=== PATIENT | female | born 1960 | race Caucasian/White ===

== ENCOUNTER 2016-11-29 21:46 | Emergency (ER) | payer MEDICAID ==
[2016-11-29] MEDS ORDERED: NAPROXEN 250 MG TABLET PO ONE (22:31)
[2016-11-29] MEDS ORDERED: LIDOCAINE 5% (700 MG) TRANSDERMAL ADH..PATCH TP ONE (22:31)
--- NOTE | 2016-11-29 22:33 | ER Document Report ---
ED General - General Chief Complaint: Back Pain Stated Complaint: BACK AND LEG PAIN Time Seen by Provider: 11/29/16 22:29 Notes: Patient is a 56-year-old female, morbid obesity with a weight of 125 kg who presents with chronic low back pain now with associated left-sided sciatica. Patient notes that she has had chronic pain in the low back for several years but has gotten progressively worse despite going to chronic pain management having localized injections to the area. She states over the last 24-40 hours she has had increasing sharp, stabbing, constant pain to the left low back now with a radiating, shooting, burning pain down her left leg. States the pain is increased by movement. She has tried lidocaine and heat without improvement of the pain. She has not seen a primary care doctor regarding today's concerns. She denies any acute injury. Denies any bowel or bladder incontinence, difficulty with ambulation, urinary retention, weakness or numbness. TRAVEL OUTSIDE OF THE [place] IN LAST 30 DAYS: No - Related Data Allergies/Adverse Reactions: No Known Drug Allergies Allergy (Verified 02/04/16 18:19) Past Medical History - General Information source: Patient - Social History Smoking Status: Current Every Day Smoker Chew tobacco use (# tins/day): No Frequency of alcohol use: None Drug Abuse: None Lives with: Family Family History: Arthritis, CAD, CVA, DM, Hyperlipidemia, Hypertension, Malignancy Patient has suicidal ideation: No Patient has homicidal ideation: No - Past Medical History Cardiac Medical History: Reports: Hx Hypercholesterolemia, Hx Hypertension Pulmonary Medical History: Reports: Hx COPD, Hx Pneumonia Endocrine Medical History: Reports: Hx Diabetes Mellitus Type 2 Renal/ Medical History: Denies: Hx Peritoneal Dialysis Musculoskeltal Medical History: Reports Hx Arthritis, Reports Hx Musculoskeletal Deformity, Reports Hx Musculoskeletal Trauma Skin Medical History: Denies Hx Cellulitis Psychiatric Medical History: Reports: Hx Depression Past Surgical History: Reports: Hx Gynecologic Surgery - ablation, Hx Hysterectomy - Immunizations Immunizations up to date: Yes Hx Diphtheria, Pertussis, Tetanus Vaccination: Yes Review of Systems - Review of Systems Notes: Constitutional: Negative for fever. HENT: Negative for sore throat. Eyes: Negative for visual changes. Cardiovascular: Negative for chest pain. Respiratory: Negative for shortness of breath. Gastrointestinal: Negative for abdominal pain, vomiting or diarrhea. Genitourinary: Negative for dysuria. Musculoskeletal: Positive for back pain. Skin: Negative for rash. Neurological: Negative for headaches, weakness or numbness. 10 point ROS negative except as marked above and in HPI. Physical Exam - Vital signs Vitals: Temp Pulse Resp BP Pulse Ox 98.2 F 86 20 150/82 H 96 11/29/16 21:52 11/29/16 21:52 11/29/16 21:52 11/29/16 21:52 11/29/16 21:52 Interpretation: Hypertensive Notes: PHYSICAL EXAMINATION: GENERAL: Well-appearing, well-nourished and in no acute distress. HEAD: Atraumatic, normocephalic. EYES: sclera anicteric, conjunctiva are normal. ENT: Moist mucous membranes. NECK: Normal range of motion LUNGS: Normal work of breathing HEART: 2+ radial pulses bilaterally, 2+ DP pulses bilaterally EXTREMITIES: no pitting or edema. No cyanosis. Back: No midline step-offs, deformities or point tenderness NEUROLOGICAL: 5 out of 5 strength both distally and proximally bilateral lower extremities. 2+ patellar reflexes bilaterally. No clonus. Sensation grossly intact in the bilateral lower extremities. Patient is able to ambulate without difficulty. PSYCH: Normal mood, normal affect. SKIN: Warm, Dry, normal turgor, no rashes or lesions noted. Course - Re-evaluation Re-evalutation: 11/29/16 22:31 Presentation of a well appearing patient complaining of acute on chronic back pain. No rapid progression of symptoms, systemic symptoms including fevers, chills, weight loss, history of recent bacterial infection, bilateral symptoms, numbness, weakness, difficulty walking, urinary retention or bowel incontinence , personal history of cancer, immunosuppression, diabetes, known AAA, or history of IV drug use. Exam is without point tenderness over vertebral bodies , pulsatile abdominal mass, and patient has symmetric and intact lower extremity strength, sensation, and reflexes without clonus. 2+ symmetric medial malleolar and dorsalis pedis pulses Based on history and physical, I have a very low suspicion of a concerning etiology of pain including epidural compression syndrome, spinal infection, transverse myelitis, malignancy, abdominal aortic aneurysm, renal colic, acute lower extremity claudication, neurogenic claudication, ankylosing spondylitis, or other intra-abdominal process. Due to absence of concerning risk factors in history and physical as well as absence of rapidly progressive, severe, or bilateral symptoms, will defer imaging at this point. Plan to manage conservatively with outpatient analgesia, analgesia, and physical therapy. - Acetaminophen 650 q 4 + ibuprofen 600 q 6 - Continue normal daily activities as tolerated by pain - Provide with standard musculoskeletal back pain exercise instructions - Instruct to follow up with primary care provider if symptoms not improving - Provide careful return precautions and concerning symptoms to watch for. - Vital Signs Vital signs: Temp Pulse Resp BP Pulse Ox 98.2 F 85 19 142/76 H 96 11/29/16 21:52 11/29/16 22:56 11/29/16 22:56 11/29/16 22:56 11/29/16 22:56 Discharge - Discharge Clinical Impression: Chronic back pain Qualifiers: Back pain location: low back pain Back pain laterality: midline Sciatica presence: with sciatica Sciatica laterality: sciatica laterality unspecified Qualified Code(s): M54.40 - Lumbago with sciatica, unspecified side Condition: Good Disposition: HOME, SELF-CARE Additional Instructions: You have been seen in the Emergency Department (ED) today for back pain. Your workup and exam have not shown any acute abnormalities and you are likely suffering from muscle strain or possible problems with your discs, but there is no treatment that will fix your symptoms at this time. Please take the naproxen that has been prescribed as directed. You should also purchase a local lidocaine cream such as "aspercreme with lidocaine" and use per bottle instructions to the affected area. Apply heat to the area as often as you are able. Continue to keep active and avoid prolonged periods of bed rest. Please follow up with your doctor as soon as possible regarding today's ED visit and your back pain. Return to the ED for worsening back pain, fever, weakness or numbness of either leg, or if you develop either (1) an inability to urinate or have bowel movements, or (2) loss of your ability to control your bathroom functions (if you start having "accidents"), or if you develop other new symptoms that concern you.concern you. Prescriptions: Naproxen 500 mg PO BID #60 tablet Referrals: KYLAH PRAKASH MD [Primary Care Provider] - Follow up as needed
[2016-11-29 22:57] VITALS: BP 142/76
== END 2016-11-29 22:56 | disposition home or self-care (01) ==
LOC: ER 21:46
DX: M54.40 Lumbago with sciatica, unspecified side (principal); M54.9 Dorsalgia, unspecified; G89.29 Other chronic pain; M54.5 Low back pain; E66.01 Morbid (severe) obesity due to excess calories; F17.200 Nicotine dependence, unspecified, uncomplicated
CPT/HCPCS: 99283; J3490 ×2

== ENCOUNTER 2016-12-01 07:11 | Inpatient (IN) | payer MEDICAID ==
--- NOTE | 2016-12-01 07:58 | ER Document Report ---
ED Neuro Symptoms/Deficit - General Chief Complaint: S/S of Possible Stroke Stated Complaint: WEAKNESS Time Seen by Provider: 12/01/16 07:21 Mode of Arrival: Ambulatory Information source: Patient Notes: Patient is a 56-year-old female who presents to the ER today for right-sided weakness, slurred speech that began last night at 5 PM. Patient lives with her son, her son states that she does not normally have slurred speech and right- sided weakness. She states that she did try to sleep through the night to see if it go away. She does have a history of hypertension, hyperlipidemia, diabetes, has never had any heart attack or stroke that she knows of. TRAVEL OUTSIDE OF THE [place] IN LAST 30 DAYS: No - Related Data Allergies/Adverse Reactions: No Known Drug Allergies Allergy (Verified 12/01/16 07:56) Home Medications: Current Home Medications Amlodipine Besylate [Norvasc 10 mg Tablet] 10 mg PO DAILY 12/01/16 [History] Canagliflozin [Invokana] 300 mg PO DAILY 12/01/16 [History] Clonidine HCl [Catapres 0.1 mg Tablet] 0.1 mg PO Q12 12/01/16 [History] Cyclobenzaprine HCl [Flexeril 10 mg Tablet] 10 mg PO BIDP PRN 12/01/16 [History] Exenatide Microspheres [Bydureon Pen] 2 mg SQ Q7D 12/01/16 [History] Insulin Aspart [Novolog Flexpen] 0 unit SQ ASDIR PRN 12/01/16 [History] Insulin Glargine,Hum.rec.anlog [Lantus Solostar] 50 unit SQ Q12 12/01/16 [ History] Nystatin [Mycostatin Cream] 1 applic TP BIDP PRN 12/01/16 [History] Pregabalin [Lyrica 100 Mg Capsule] 100 mg PO Q8 12/01/16 [History] Sulindac [Clinoril] 200 mg PO Q12HP PRN 12/01/16 [History] Triamcinolone Acetonide [Aristocort 0.1% Cream 15 gm] 1 applic TP BIDP PRN 12/01 [History] Past Medical History - General Information source: Patient - Social History Smoking Status: Former Smoker Family History: Arthritis, CAD, CVA, DM, Hyperlipidemia, Hypertension, Malignancy - Past Medical History Cardiac Medical History: Reports: Hx Hypercholesterolemia, Hx Hypertension Pulmonary Medical History: Reports: Hx COPD, Hx Pneumonia Endocrine Medical History: Reports: Hx Diabetes Mellitus Type 2 Renal/ Medical History: Denies: Hx Peritoneal Dialysis Musculoskeltal Medical History: Reports Hx Arthritis, Reports Hx Musculoskeletal Deformity, Reports Hx Musculoskeletal Trauma Skin Medical History: Denies Hx Cellulitis Psychiatric Medical History: Reports: Hx Depression Past Surgical History: Reports: Hx Gynecologic Surgery - ablation, Hx Hysterectomy - Immunizations Immunizations up to date: Yes Hx Diphtheria, Pertussis, Tetanus Vaccination: Yes Review of Systems - Review of Systems Constitutional: No symptoms reported EENT: No symptoms reported Cardiovascular: No symptoms reported Respiratory: No symptoms reported Gastrointestinal: No symptoms reported Genitourinary: No symptoms reported Female Genitourinary: No symptoms reported Musculoskeletal: No symptoms reported Skin: No symptoms reported Hematologic/Lymphatic: No symptoms reported Neurological/Psychological: See HPI Physical Exam - Vital signs Vitals: Pulse Resp BP Pulse Ox 69 14 140/89 H 93 12/01/16 07:19 12/01/16 07:19 12/01/16 07:19 12/01/16 07:19 - Notes Notes: PHYSICAL EXAMINATION: GENERAL: chronically ill appearing, but in no acute distress. HEAD: Atraumatic, normocephalic. EYES: Pupils equal round and reactive to light, extraocular movements intact, sclera anicteric, conjunctiva are normal. ENT: ear canals without erythema or foreign body, TMs pearly li with good bony landmarks, nares patent, oropharynx clear without exudates. Moist mucous membranes. airway patent NECK: Normal range of motion, supple without lymphadenopathy LUNGS: CTAB and equal. No wheezes rales or rhonchi. HEART: Regular rate and rhythm without murmurs ABDOMEN: Soft, no tenderness. No guarding, no rebound BACK: no vertebral tenderness, normal ROM GI/: no CVA tenderness EXTREMITIES: Normal range of motion, no pitting edema. No cyanosis. NEUROLOGICAL: right sided weakness to right leg and right arm, slurred speech, Cranial nerves grossly intact. Normal sensory exams. PSYCH: Normal mood, normal affect. SKIN: Warm, Dry, normal turgor, no rashes or lesions noted Course - Re-evaluation Re-evalutation: 12/01/16 09:21 pt's NIH score performed by me is 2 points, she is not a candidate for TPA as the symptoms began at 5pm last night, more than 12 hours ago. 12/01/16 09:29 Dr. Castorena agrees to admit pt for stroke like symtpoms with normal CT head and workup today but with right sided weakness and slurred speech. 12/02/16 10:00 - Vital Signs Vital signs: Temp Pulse Resp BP Pulse Ox 69 14 140/89 H 96 12/01/16 07:19 12/01/16 07:19 12/01/16 07:19 12/01/16 07:36 - Laboratory Result Diagrams: 12/02/16 04:29 12/02/16 04:29 ED NIH Stroke Scale - NIH Stroke Scale *: 1. NIH scale should be completed with appropriate accompanying assessment tools. *: 2. The NIH should reflect what the patient is capable of doing and should not be coached by the clinician. 1a. Level of Consciousness: 0=Alert;keenly responsive -: 1=Drowsy -: 2=Obtunded -: 3=Coma/unresponsive or reflex to noxious stimuli. 1a. Responses: 0 1b. Orientation Questions: a. What month is it? -: b. How old are you? -: 0=Answers both questions correctly. -: 1=Answers one question correctly or patient is intubated or has orotracheal trauma. -: 2=Answers neither question correctly. 1b. Responses: 0 1c. Response to commands: a. Open and close eyes? -: b. [employer] Supervisor and release hand? -: Credit is given despite weakness. Demonstration of task is permitted. Substitute command if hands cannot be used. -: 0=Performs both tasks correctly -: 1=Performs one task correctly -: 2=Performs neither task correctly 1c. Responses: 0 2. Gaze: Establish eye contact and instruct patient to "Follow my finger" -: 0=Normal -: 1=Partial gaze palsy. Gaze is abnormal in one or both eyes, but where forced deviation or total gaze paresis is not present. -: 2=Forced deviation or total gaze paresis. 2. Responses: 0 3. Visual Nagy: Sees fingers in all four quadrants. -: 0=No visual loss. -: 1=Partial hemianopsia. -: 2=Complete hemianopsia. -: 3=Bilateral hemianopsia (including Cortical blindness) 3. Responses: 0 4. Facial Movement: Instruct patient to: -: a. Show me your teeth -: b. Raise your eyebrows -: c. Close your eyes -: d. Smile -: 0=Normal symmetrical movement -: 1=Minor paralysis (flattened nasolabial fold, asymmetry on smiling). -: 2=Partial paralysis (total or near total paralysis of lower face). -: 3=Complete paralysis of upper and lower face 4. Responses: 0 5. Motor functions (left arm): Alternate sides and extend each arm with palms down (90 degrees if sitting or 45 degrees for supine). -: 0=No drift;limb holds for full 10 seconds. -: 1=Drift; limb holds but drifts down before full 10 seconds, but does not hit bed. -: 2=Some effort against gravity; limb cannot get to or maintain position. -: 3=No effort against gravity; limb falls. -: 4=No movement. -: UN=Amputation, joint fusion, explain in comments. 5. Responses (left arm): 0 5. Motor Functions (right arm): Alternate sides and extend each arm with palms down (90 degrees if sitting or 45 degrees for supine). -: 0=No drift;limb holds for full 10 seconds. -: 1=Drift; limb holds but drifts down before full 10 seconds, but does not hit bed. -: 2=Some effort against gravity; limb cannot get to or maintain position. -: 3=No effort against gravity; limb falls. -: 4=No movement. -: UN=Amputation, joint fusion, explain in comments. 5. Responses (right arm): 0 6. Motor Functions (left leg): With patient lying supine, alternate sides and extend each leg (30 degrees always while supine). -: 0=No drift, leg holds position for full 5 seconds -: 1=Drift; leg falls before full 5 seconds but does not hit bed. -: 2=Some effort against gravity, leg falls to bed but some effort against gravity. -: 3=No effort against gravity, leg falls to bed immediately. -: 4=No movement. -: UN=Amputation, joint fusion; explain in comments. 6. Responses (left leg): 0 6. Motor Functions (right leg): With patient lying supine, alternate sides and extend each leg (30 degrees always while supine). -: 0=No drift, leg holds position for full 5 seconds -: 1=Drift; leg falls before full 5 seconds but does not hit bed. -: 2=Some effort against gravity, leg falls to bed but some effort against gravity. -: 3=No effort against gravity, leg falls to bed immediately. -: 4=No movement. -: UN=Amputation, joint fusion; explain in comments. 6. Responses (right leg): 1 7. Limb Ataxia: With eyes open instruct patient to: -: a. "Touch your finger to your nose". -: b. "Touch your heel to your martinez" -: 0=Absent -: 1=Present in one limb. -: 2=Present in two limbs. -: UN=Amputation or joint fusion; explain in comments. 7. Responses: 0 8. Sensory: Test sensation using pinprick or noxious stimuli. Test as many body parts as possible. -: 0=Normal;no sensory loss -: 1=Mile to moderate sensory loss (patient feels pin prick but is less sharp on affected side). -: 2=Severe or total sensory loss. 8. Responses: 0 9. Best Language: Instruct patient to: -: a. "Describe what you see in this picture." -: b. "Name the items in this picture." -: c. "Read these sentences." -: 0=No aphasia, normal -: 1=Mild to moderate aphasia. -: 2=Severe aphasia -: 3=Mute, global aphasia, no usable speech or auditory comprehension. 9. Responses: 0 10. Articulation, Dysarthia: Instruct patient to: -: "Read these words" or "Repeat these words" -: 0=Normal -: 1=Mild to moderate; patient may slur some words but can be understood without difficulty. -: 2=Severe; patients speech so slurred as to be unintelligible in the absence of dysphasia. -: UN=Intubated or other physical barrier, explain in comments. 10. Responses: 1 11. Extinction or inattention: 0=No abnormality -: 1= Visual, tactile, auditory, spatial, or personal inattention or extinction to bilateral simulation in one or the sensory modalities. -: 2=Profound maged-inattention or maged-inattention to more than one modality; does not recognize own hand. 11. Responses: 0 Total Score: 2 Discharge - Discharge Clinical Impression: Stroke-like symptoms Condition: Stable Disposition: ADMITTED INPATIENT Admitting Provider: Hospitalist Unit Admitted: [facility]
--- NOTE | 2016-12-01 08:11 | RADIOLOGY REPORT (SQ) ---
EXAM DESCRIPTION: CHEST SINGLE VIEW COMPLETED DATE/TIME: 12/01/2016 8:00 am REASON FOR STUDY: right sided weakness COMPARISON: January 2016 EXAM PARAMETERS: NUMBER OF VIEWS: One view. TECHNIQUE: Single frontal radiographic view of the chest acquired. RADIATION DOSE: NA LIMITATIONS: None. FINDINGS: LUNGS AND PLEURA: No opacities, masses or pneumothorax. No pleural effusion. MEDIASTINUM AND HILAR STRUCTURES: No masses. Contour normal. HEART AND VASCULAR STRUCTURES: Heart normal in size. Normal vasculature. BONES: No acute findings. HARDWARE: None in the chest. OTHER: No other significant finding. IMPRESSION: NO ACUTE RADIOGRAPHIC FINDING IN THE CHEST. TECHNICAL DOCUMENTATION: JOB ID: [id number]
--- NOTE | 2016-12-01 08:15 | RADIOLOGY REPORT (SQ) ---
EXAM DESCRIPTION: CT HEAD WITHOUT COMPLETED DATE/TIME: 12/01/2016 8:06 am REASON FOR STUDY: right sided weakness COMPARISON: January 2016 TECHNIQUE: Axial images acquired through the brain without intravenous contrast. Images reviewed wi th bone, brain and subdural windows. Images stored on PACS. All CT scanners at this facility use dose modulation, iterative reconstruction, and/or weight based d osing when appropriate to reduce radiation dose to as low as reasonably achievable (ALARA). [facility]: Dose Right [facility]: CareDose [facility]: Dose Right [facility]: Teradose 4D [facility]: Smart IT'SUGAR RADIATION DOSE: Up-to-date CT equipment and radiation dose reduction techniques were employed. CTDIv ol: 59.5 mGy. DLP: 1163 mGy-cm. mGy. LIMITATIONS: None. FINDINGS: VENTRICLES: Normal size and contour. CEREBRUM: No masses. No hemorrhage. No midline shift. Normal telles/white matter differentiation. N o evidence for acute infarction. CEREBELLUM: No masses. No hemorrhage. No alteration of density. No evidence for acute infarction. EXTRAAXIAL SPACES: No fluid collections. No masses. ORBITS AND GLOBE: No intra- or extraconal masses. Normal contour of globe without masses. CALVARIUM: No fracture. PARANASAL SINUSES: No fluid or mucosal thickening. SOFT TISSUES: No mass or hematoma. OTHER: No other significant finding. IMPRESSION: NORMAL BRAIN CT WITHOUT CONTRAST. TECHNICAL DOCUMENTATION: JOB ID: [id number] Quality ID # [id number]: Final reports with documentation of one or more dose reduction techniques (e.g., Au tomated exposure control, adjustment of the mA and/or kV according to patient size, use of iterative reconstruction technique) 2010 [employer]- All Rights Reserved
[2016-12-01 08:32] LABS: ABSOLUTE EOSINOPHILS # (AUTO) 0.1 10^3/uL (0.0-0.6); ABSOLUTE LYMPHOCYTES (AUTO) 2.6 10^3/uL (0.5-4.7); ABSOLUTE MONOCYTES (AUTO) 0.7 10^3/uL (0.1-1.4); ABSOLUTE NEUT (AUTO) 5.5 10^3/uL (1.7-8.2); BASOPHILS % (AUTO) 0.2 % (0-2); EOSINOPHILS % (AUTO) 1.5 % (0-6); HEMATOCRIT 39.3 % (36.0-47.0); HEMOGLOBIN 13.3 g/dL (12.0-15.5); HGB HCT DIFFERENCE 0.6; LYMPHOCYTES % (AUTO) 29.3 % (13-45); MEAN CORPUSCULAR HEMOGLOBIN 31.5 pg (27.0-33.4); MEAN CORPUSCULAR HGB CONC 33.8 g/dL (32.0-36.0); MEAN CORPUSCULAR VOLUME 93 fl (80-97); MONOCYTES % (AUTO) 7.9 % (3-13); RED BLOOD COUNT 4.21 10^6/uL (3.72-5.28); RED CELL DISTRIBUTION WIDTH 14.4 % (11.5-14.0); SEGMENTED NEUTROPHILS % (AUTO) 61.1 % (42-78)
[2016-12-01 08:34] LABS: PROTHROMBIN TIME 12.7 SEC (11.4-15.4)
[2016-12-01 08:35] LABS: PARTIAL THROMBOPLASTIN TIME 28.3 SEC (23.5-35.8)
[2016-12-01 08:49] LABS: ALANINE AMINOTRANSFERASE 47 U/L (9-52); ALKALINE PHOSPHATASE 64 U/L (38-126); ANION GAP 11 (5-19); ASPARTATE AMINO TRANSFERASE 42 U/L (14-36); BILIRUBIN,DIRECT 0.3 mg/dL (0.0-0.4); BILIRUBIN,TOTAL 0.6 mg/dL (0.2-1.3); BLOOD UREA NITROGEN 9 mg/dL (7-20); CALCIUM 9.3 mg/dL (8.4-10.2); CARBON DIOXIDE 27 mmol/L (22-30); CHLORIDE 103 mmol/L (98-107); CREATINE KINASE 153 U/L (30-135); GLUCOSE 171 mg/dL (75-110); POTASSIUM 3.6 mmol/L (3.6-5.0); SODIUM 141.2 mmol/L (137-145); TOTAL PROTEIN 6.8 g/dL (6.3-8.2)
[2016-12-01 08:53] LABS: ALCOHOL < 10 mg/dL (NONE DETECTED)
[2016-12-01 08:58] LABS: CREATINE KINASE MB 1.38 ng/mL (<4.55)
[2016-12-01 09:00] LABS: TROPONIN I < 0.012 ng/mL
[2016-12-01 09:11] LABS: URINE BARBITURATES SCREEN NEGATIVE; URINE METHADONE SCREEN NEGATIVE; URINE OPIATES LOW NEGATIVE; URINE PHENCYCLIDINE SCREEN NEGATIVE
[2016-12-01] MEDS ORDERED: MAGNESIUM HYDROXIDE SUSP 30 ML UDCUP PO PRN (09:49)
[2016-12-01] MEDS ORDERED: ACETAMINOPHEN 325 MG TABLET PO PRN (09:49)
[2016-12-01] MEDS ORDERED: ONDANSETRON HCL INJ/PF 4 MG/2 ML SDV IV PRN (09:49)
[2016-12-01] MEDS ORDERED: DEXTROSE 40% GEL 15 GM TUBE PO PRN ×2 (09:55)
[2016-12-01] MEDS ORDERED: GLUCAGON,HUMAN RECOMB 1 MG INJ IM PRN (09:55)
[2016-12-01] MEDS ORDERED: DEXTROSE 50%-WATER 25 GM/50 ML DISP.SYRIN IV PRN ×2 (09:55)
[2016-12-01] MEDS: ENOXAPARIN SODIUM INJ 40 MG/0.4 ML DISP.SYRIN SUBCUT SCH (10:18)
[2016-12-01] MEDS: ASPIRIN 325 MG TABLET, ENT COATED PO SCH (10:18)
[2016-12-01] MEDS: FAMOTIDINE 20 MG TABLET PO SCH ×2 (10:18→21:40)
[2016-12-01 10:58] LABS: APPEARANCE,URINE CLEAR; BILIRUBIN,URINE NEGATIVE (NEGATIVE); GLUCOSE, URINE >=500 mg/dL (NEGATIVE); KETONES,URINE NEGATIVE (NEGATIVE); LEUKOCYTE ESTERASE,URINE NEGATIVE (NEGATIVE); NITRITE,URINE NEGATIVE (NEGATIVE); PROTEIN,URINE NEGATIVE (NEGATIVE); URINE SPECIFIC GRAVITY 1.033; UROBILINOGEN,URINE NEGATIVE mg/dL (<2.0)
--- NOTE | 2016-12-01 13:12 | RADIOLOGY REPORT (SQ) ---
EXAM DESCRIPTION: MRI HEAD WITHOUT COMPLETED DATE/TIME: 12/01/2016 12:38 pm REASON FOR STUDY: Right sided weakness, slurred speech COMPARISON: Brain CT scan dated 12/01/2016 TECHNIQUE: Multiplanar imaging includes non-contrasted T1, T2, FLAIR, and diffusion with ADC map seq uences. Images stored on PACS. LIMITATIONS: None. FINDINGS: ANATOMY: No anomalies. Normal vascular flow voids. Pituitary fossa normal. CSF SPACES: Normal in size and contour. No hemorrhage. CEREBRUM: Sulci and gyri normal in size and contour. Normal white matter signal on FLAIR imaging. No evidence of hemorrhage, mass, or extraaxial fluid collection. POSTERIOR FOSSA: No signal alteration. No hemorrhage. No edema, masses or mass effect. Internal astrid tory canals, cerebello-pontine angles, mastoids normal. DIFFUSION IMAGING: There is abnormal signal intensity at the level of the brainstem on the left consi stent with an area of recent infarction ORBITS: No masses. Globes normal. PARANASAL SINUSES: No fluid levels. Mucosa normal. OTHER: No other significant finding. IMPRESSION: Abnormal signal intensity is identified at the level of the brainstem on the left on the diffusion-weighted sequences consistent with an area of recent infarction. No other significant int racranial abnormalities were identified. EVIDENCE OF ACUTE STROKE: Yes TECHNICAL DOCUMENTATION: JOB ID: [id number]- All Rights Reserved
[2016-12-01] MEDS ORDERED: NICOTINE 21 MG/24 HR PATCH.TD24 TD ONE ×2 (14:36→18:15)
--- NOTE | 2016-12-01 15:52 | RADIOLOGY REPORT (SQ) ---
EXAM DESCRIPTION: CAROTID DOPPLER COMPLETED DATE/TIME: 12/01/2016 3:37 pm REASON FOR STUDY: right sided weakness, slurred speech COMPARISON: None. TECHNIQUE: Grayscale ultrasound, Doppler velocity and spectra, and color Doppler images acquired of the extra-cranial carotid and vertebral arteries. Images stored on PACS. LIMITATIONS: None. FINDINGS: RIGHT CAROTID CCA Velocities: Within normal limits. ICA Velocities Peak systolic 1.03 m/s. End diastolic 0.30 m/s. Proximal ICA/CCA peak systolic ratio 2.1. Heterogeneous and irregular atherosclerotic plaquing is identified. LEFT CAROTID CCA Velocities: Within normal limits. ICA Velocities Peak systolic 0.94 m/s. End diastolic 0.42 m/s. Proximal ICA/CCA peak systolic ratio 1.6. Heterogeneous and irregular atherosclerotic plaquing is identified. VERTEBRAL ARTERIES: Antegrade flow. Normal waveforms. SUBCLAVIAN ARTERIES: No finding. OTHER: No other significant finding. IMPRESSION: NO HEMODYNAMICALLY SIGNIFICANT STENOSIS. COMMENT: Quality ID #[id number]: Velocity criteria are extrapolated from the diameter data as defined by t he Society of Radiologists in Ultrasound Consensus Conference. Radiology 2003: 229; 340-346. TECHNICAL DOCUMENTATION: JOB ID: [id number] [employer]- All Rights Reserved
--- NOTE | 2016-12-01 16:43 | PDOC H&P ---
History of Present Illness Admission Date/PCP: 12/01/16 09:49 KYLAH PRAKASH MD Patient complains of: Right sided weakness and slurred speech History of Present Illness: RUPERT LOU is a 56 year old female with history of diabetes mellitus type 2, essential hypertension, morbid obesity, tobacco abuse and dyslipidemia; who presented to [facility] ER this morning via EMS per the son found her slumped against the bathroom. Reports difficulty with her right-sided extremities that began yesterday afternoon as well as slurred speech. Patient states she did not have anyone at home to take her to the hospital until her son came home from work. She denies headache or head trauma. Denies any previous CVAs. He does complain of pain along her right rib cage where she hit the wall. Has some mild bruising in this area as well. CT of the head done in the ER showed no CVA no abnormalities. Past Medical History Cardiac Medical History: Reports: Hyperlipidema, Hypertension Pulmonary Medical History: Reports: Chronic Obstructive Pulmonary Disease (COPD) , Pneumonia EENT Medical History: Reports: None Neurological Medical History: Reports: Ischemic CVA Endocrine Medical History: Reports: Diabetes Mellitus Type 2 Malignancy Medical History: Reports: None GI Medical History: Reports: None Musculoskeltal Medical History: Reports: Arthritis Psychiatric Medical History: Reports: Depression Traumatic Medical History: Reports: None Hematology: Reports: None Infectious Medical History: Reports: None Past Surgical History Past Surgical History: Reports: Hysterectomy Social History Information Source: Patient Lives with: Family Smoking Status: Current Every Day Smoker Cigarettes Packs Per Day: 1 Number of Years Smokin Last Time Smoked: 12-01-16 Frequency of Alcohol Use: None Hx Recreational Drug Use: No Drugs: None Hx Prescription Drug Abuse: No - Advance Directive Resuscitation Status: Full Code Family History Family History: Arthritis, CAD, CVA, DM, Hyperlipidemia, Hypertension, Malignancy Parental Family History Reviewed: Yes Children Family History Reviewed: Yes Sibling(s) Family History Reviewed.: Yes Medication/Allergy Home Medications: Amlodipine Besylate [Norvasc 10 mg Tablet] 10 mg PO DAILY 12/01/16 Canagliflozin [Invokana] 300 mg PO DAILY 12/01/16 Clonidine HCl [Catapres 0.1 mg Tablet] 0.1 mg PO Q12 12/01/16 Cyclobenzaprine HCl [Flexeril 10 mg Tablet] 10 mg PO BIDP PRN 12/01/16 Exenatide Microspheres [Bydureon Pen] 2 mg SQ Q7D 12/01/16 Insulin Aspart [Novolog Flexpen] 0 unit SQ ASDIR PRN 12/01/16 Insulin Glargine,Hum.rec.anlog [Lantus Solostar] 50 unit SQ Q12 12/01/16 Nystatin [Mycostatin Cream] 1 applic TP BIDP PRN 12/01/16 Pregabalin [Lyrica 100 Mg Capsule] 100 mg PO Q8 12/01/16 Sulindac [Clinoril] 200 mg PO Q12HP PRN 12/01/16 Triamcinolone Acetonide [Aristocort 0.1% Cream 15 gm] 1 applic TP BIDP PRN 12/01 Allergies/Adverse Reactions: No Known Drug Allergies Allergy (Verified 12/01/16 07:56) Review of Systems Constitutional: ABSENT: chills, fever(s), headache(s), weight gain, weight loss Eyes: ABSENT: visual disturbances Cardiovascular: ABSENT: chest pain, dyspnea on exertion, edema, orthropnea, palpitations Gastrointestinal: ABSENT: abdominal pain, constipation, diarrhea, hematemesis, hematochezia, nausea, vomiting Genitourinary: ABSENT: dysuria, hematuria Musculoskeletal: ABSENT: joint swelling Integumentary: ABSENT: rash, wounds Neurological: PRESENT: abnormal gait, weakness - right sided extremities 2/5 muscle strenght. ABSENT: abnormal speech, confusion, dizziness, focal weakness , syncope Psychiatric: ABSENT: anxiety, depression, homidical ideation, suicidal ideation Endocrine: ABSENT: cold intolerance, heat intolerance, polydipsia, polyuria Hematologic/Lymphatic: ABSENT: easy bleeding, easy bruising Physical Exam Vital Signs: Temp Pulse Resp BP Pulse Ox 98.3 F 65 18 148/75 H 95 12/01/16 14:54 12/01/16 14:54 12/01/16 14:54 12/01/16 14:54 12/01/16 14:54 Intake & Output 11/30/16 12/01/16 12/02/16 06:59 06:59 06:59 Weight 124.1 kg General appearance: PRESENT: no acute distress, morbidly obese, well-developed, well-nourished Head exam: PRESENT: atraumatic, normocephalic Eye exam: PRESENT: conjunctival injection Ear exam: PRESENT: normal external ear exam Mouth exam: PRESENT: moist, tongue midline Teeth exam: PRESENT: poor dentation Neck exam: PRESENT: full ROM Respiratory exam: PRESENT: clear to auscultation yessy. ABSENT: rales, rhonchi, wheezes Cardiovascular exam: PRESENT: RRR. ABSENT: diastolic murmur, rubs, systolic murmur Pulses: PRESENT: normal dorsalis pedis pul Vascular exam: PRESENT: normal capillary refill GI/Abdominal exam: PRESENT: normal bowel sounds, soft. ABSENT: distended, guarding, mass, organolmegaly, rebound, tenderness Rectal exam: PRESENT: deferred Extremities exam: PRESENT: full ROM. ABSENT: calf tenderness, clubbing, pedal edema Neurological exam: PRESENT: alert, awake, oriented to person, oriented to place , oriented to time, oriented to situation, CN II-XII grossly intact. ABSENT: motor sensory deficit Psychiatric exam: PRESENT: appropriate affect, normal mood. ABSENT: homicidal ideation, suicidal ideation Skin exam: PRESENT: dry, intact, warm. ABSENT: cyanosis, rash Results Impressions: Head MRI 12/01/16 00:00 IMPRESSION: Abnormal signal intensity is identified at the level of the brainstem on the left on the diffusion-weighted sequences consistent with an area of recent infarction. No other significant intracranial abnormalities were identified. EVIDENCE OF ACUTE STROKE: Yes Chest X-Ray 12/01/16 07:36 IMPRESSION: NO ACUTE RADIOGRAPHIC FINDING IN THE CHEST. Head CT 12/01/16 07:36 IMPRESSION: NORMAL BRAIN CT WITHOUT CONTRAST. Carotid Doppler Study 12/01/16 09:51 IMPRESSION: NO HEMODYNAMICALLY SIGNIFICANT STENOSIS. Assessment & Plan - Diagnosis (1) Left pontine CVA Is this a current diagnosis for this admission?: YesPlan: She will have PT, OT and aspirin and statin therapy. Most likely need acute rehab placement post discharge (2) Diabetes mellitus Qualifiers: Diabetes mellitus type: type 2 Diabetes mellitus complication status: with circulatory complication Is this a current diagnosis for this admission?: YesPlan: Been noncompliant with medications will restart oral meds and sliding scale (3) Dyslipidemia Is this a current diagnosis for this admission?: YesPlan: Continue statin (4) Essential hypertension Is this a current diagnosis for this admission?: YesPlan: Continue home medications and monitor (5) Tobacco abuse Is this a current diagnosis for this admission?: YesPlan: Counseled. Nicotine replacement (6) Morbid exogenous obesity Is this a current diagnosis for this admission?: YesPlan: Patient was counseled - Time Time Spent: 50 to 70 Minutes Critical Time spent with patient: 25-34 minutes Medications reviewed and adjusted accordingly: Yes
[2016-12-01] MEDS: ATORVASTATIN CALCIUM 40 MG TABLET PO SCH (21:40)
[2016-12-01] MEDS: TRAMADOL HCL 50 MG TABLET PO PRN (21:46)
[2016-12-02 05:19] LABS: HEMOGLOBIN 13.4 g/dL (12.0-15.5); HGB HCT DIFFERENCE 1.2; MEAN CORPUSCULAR HEMOGLOBIN 32.1 pg (27.0-33.4); MEAN CORPUSCULAR HGB CONC 34.3 g/dL (32.0-36.0); MEAN CORPUSCULAR VOLUME 94 fl (80-97); RED BLOOD COUNT 4.16 10^6/uL (3.72-5.28); RED CELL DISTRIBUTION WIDTH 14.1 % (11.5-14.0); WHITE BLOOD COUNT 6.6 10^3/uL (4.0-10.5)
[2016-12-02 05:33] LABS: ANION GAP 10 (5-19); BLOOD UREA NITROGEN 11 mg/dL (7-20); CALCIUM 9.2 mg/dL (8.4-10.2); CARBON DIOXIDE 24 mmol/L (22-30); CHLORIDE 106 mmol/L (98-107); CHOLESTEROL 142.35 mg/dL (0-200); CREATININE RESULT 0.45 mg/dL (0.52-1.25); Direct HDL 31 mg/dL (>40); GLUCOSE 147 mg/dL (75-110); POTASSIUM 3.5 mmol/L (3.6-5.0); SODIUM 140.4 mmol/L (137-145); TRIGLYCERIDES 365 mg/dL (<150)
[2016-12-02 05:44] LABS: DIRECT LDL 64 mg/dL (<100)
[2016-12-02] MEDS ORDERED: NYSTATIN CREAM 15 GM TP PRN (09:14)
[2016-12-02] MEDS ORDERED: SULINDAC 200 MG PO PRN (09:14)
[2016-12-02] MEDS ORDERED: CYCLOBENZAPRINE HCL 10 MG TABLET PO PRN (09:14)
[2016-12-02] MEDS ORDERED: (PENDING PHARMACY ID) (Exenatide Microspheres [Bydureon Pen] 2 MG) SQ SCH (09:15)
[2016-12-02] MEDS: ASPIRIN 325 MG TABLET, ENT COATED PO SCH (09:53)
[2016-12-02] MEDS: FAMOTIDINE 20 MG TABLET PO SCH ×2 (09:53→22:09)
[2016-12-02] MEDS: ENOXAPARIN SODIUM INJ 40 MG/0.4 ML DISP.SYRIN SUBCUT SCH (09:53)
[2016-12-02] MEDS ORDERED: (PENDING PHARMACY ID) (Canagliflozin [Invokana] 300 MG) PO SCH (10:00)
[2016-12-02] MEDS ORDERED: INSULIN GLARGINE,HUM.REC.ANLOG 300 UNIT/3 ML INSULN.PEN SUBCUT SCH (10:00)
[2016-12-02] MEDS: INSULIN LISPRO 100 UNIT/ML 3 ML VIAL SUBCUT PRN ×3 (13:02→22:09)
[2016-12-02] MEDS: INSULIN GLARGINE,HUM.REC.ANLOG 1,000 UNIT/10 ML UNIT SUBCUT SCH ×2 (13:02→22:09)
[2016-12-02] MEDS: AMLODIPINE BESYLATE 10 MG TABLET PO SCH (13:02)
[2016-12-02] MEDS: CLONIDINE HCL 0.1 MG TABLET PO SCH ×2 (13:03→22:09)
[2016-12-02] MEDS: PREGABALIN 100 MG CAPSULE PO SCH ×2 (13:03→22:09)
[2016-12-02] MEDS: ATORVASTATIN CALCIUM 40 MG TABLET PO SCH (22:09)
[2016-12-03] MEDS: PREGABALIN 100 MG CAPSULE PO SCH ×3 (06:23→22:02)
[2016-12-03] MEDS: INSULIN LISPRO 100 UNIT/ML 3 ML VIAL SUBCUT PRN ×4 (08:17→22:03)
[2016-12-03] MEDS: ASPIRIN 325 MG TABLET, ENT COATED PO SCH (10:28)
[2016-12-03] MEDS: INSULIN GLARGINE,HUM.REC.ANLOG 1,000 UNIT/10 ML UNIT SUBCUT SCH ×2 (10:28→22:03)
[2016-12-03] MEDS: ENOXAPARIN SODIUM INJ 40 MG/0.4 ML DISP.SYRIN SUBCUT SCH (10:30)
[2016-12-03] MEDS: AMLODIPINE BESYLATE 10 MG TABLET PO SCH (10:30)
[2016-12-03] MEDS: FAMOTIDINE 20 MG TABLET PO SCH ×2 (10:30→22:03)
[2016-12-03] MEDS: CLONIDINE HCL 0.1 MG TABLET PO SCH ×2 (10:30→21:45)
--- NOTE | 2016-12-03 11:44 | PDOC PROGRESS REPORT ---
Subjective Progress Note for:: 12/02/16 Subjective:: Patient seen on morning rounds. She is out of bed sitting in recliner. She has a little more gross motor movement of the right upper extremity, right leg remains unchanged. Her speech is definitely clearer today than yesterday. She was able to take a couple of steps with physical therapy. We have discussed going to acute rehab. She states she would rather go home. Her son is only there some of the time. Physical Exam Vital Signs: Temp Pulse Resp BP Pulse Ox 97.8 F 65 20 140/74 H 96 12/03/16 08:19 12/03/16 08:19 12/03/16 08:19 12/03/16 08:19 12/03/16 08:19 Intake & Output 12/02/16 12/03/16 12/04/16 06:59 06:59 06:59 Intake Total 1708 1070 Output Total 2 350 Balance 1706 720 Weight 123.9 kg 123.2 kg General appearance: PRESENT: no acute distress, morbidly obese, well-developed, well-nourished Head exam: PRESENT: atraumatic, normocephalic Eye exam: PRESENT: conjunctiva pink, EOMI, PERRLA. ABSENT: scleral icterus Ear exam: PRESENT: normal external ear exam Mouth exam: PRESENT: moist, tongue midline Teeth exam: PRESENT: poor dentation Neck exam: ABSENT: carotid bruit, JVD, lymphadenopathy, thyromegaly Respiratory exam: PRESENT: clear to auscultation yessy. ABSENT: rales, rhonchi, wheezes Cardiovascular exam: PRESENT: RRR. ABSENT: diastolic murmur, rubs, systolic murmur Pulses: PRESENT: normal dorsalis pedis pul Vascular exam: PRESENT: normal capillary refill GI/Abdominal exam: PRESENT: normal bowel sounds, soft. ABSENT: distended, guarding, mass, organolmegaly, rebound, tenderness Rectal exam: PRESENT: deferred Extremities exam: PRESENT: full ROM. ABSENT: calf tenderness, clubbing, pedal edema Musculoskeletal exam: PRESENT: ambulatory, other - left Neurological exam: PRESENT: alert, awake, oriented to person, oriented to place , oriented to time, oriented to situation, abnormal gait - right lower extremity 1/5 muscle strength, CN II-XII grossly intact, other. ABSENT: motor sensory deficit Psychiatric exam: PRESENT: appropriate affect, normal mood. ABSENT: homicidal ideation, suicidal ideation Skin exam: PRESENT: dry, intact, warm. ABSENT: cyanosis, rash Results Laboratory Results: 12/02/16 04:29 12/02/16 04:29 Impressions: Head MRI 12/01/16 00:00 IMPRESSION: Abnormal signal intensity is identified at the level of the brainstem on the left on the diffusion-weighted sequences consistent with an area of recent infarction. No other significant intracranial abnormalities were identified. EVIDENCE OF ACUTE STROKE: Yes Chest X-Ray 12/01/16 07:36 IMPRESSION: NO ACUTE RADIOGRAPHIC FINDING IN THE CHEST. Head CT 12/01/16 07:36 IMPRESSION: NORMAL BRAIN CT WITHOUT CONTRAST. Carotid Doppler Study 12/01/16 09:51 IMPRESSION: NO HEMODYNAMICALLY SIGNIFICANT STENOSIS. Assessment & Plan - Diagnosis (1) Left pontine CVA Is this a current diagnosis for this admission?: YesPlan: She will have PT, OT and aspirin and statin therapy. Most likely need acute rehab placement post discharge (2) Diabetes mellitus Qualifiers: Diabetes mellitus type: type 2 Diabetes mellitus complication status: with circulatory complication Is this a current diagnosis for this admission?: YesPlan: Been noncompliant with medications will restart oral meds and sliding scale (3) Dyslipidemia Is this a current diagnosis for this admission?: YesPlan: Continue statin (4) Essential hypertension Is this a current diagnosis for this admission?: YesPlan: Continue home medications and monitor (5) Tobacco abuse Is this a current diagnosis for this admission?: YesPlan: Counseled. Nicotine replacement (6) Morbid exogenous obesity Is this a current diagnosis for this admission?: YesPlan: Patient was counseled - Time Time Spent with patient: 25-34 minutes Critical Time spent with patient: 15-24 minutes Medications reviewed and adjusted accordingly: Yes
[2016-12-03] MEDS: TRAMADOL HCL 50 MG TABLET PO PRN (12:24)
[2016-12-03] MEDS ORDERED: NICOTINE 21 MG/24 HR PATCH.TD24 TD ONE (12:45)
--- NOTE | 2016-12-03 12:48 | PDOC PROGRESS REPORT ---
Subjective Progress Note for:: 12/03/16 Subjective:: Patient seen on morning rounds. She is out of bed sitting in recliner. She has a little more gross motor movement of the right upper extremity, right leg remains unchanged. Her speech is definitely clearer today than yesterday. She was able to take a couple of steps with physical therapy. We have discussed going to acute rehab. She states she would rather go home. Her son is only there some of the time. Physical Exam Vital Signs: Temp Pulse Resp BP Pulse Ox 97.6 F 64 18 139/82 H 97 12/03/16 11:29 12/03/16 11:29 12/03/16 11:29 12/03/16 11:29 12/03/16 11:29 Intake & Output 12/02/16 12/03/16 12/04/16 06:59 06:59 06:59 Intake Total 1708 1070 650 Output Total 2 350 Balance 1706 720 650 Weight 123.9 kg 123.2 kg General appearance: PRESENT: no acute distress, morbidly obese, well-developed, well-nourished Head exam: PRESENT: atraumatic, normocephalic Eye exam: PRESENT: conjunctiva pink, EOMI, PERRLA. ABSENT: scleral icterus Ear exam: PRESENT: normal external ear exam Mouth exam: PRESENT: moist, tongue midline Neck exam: ABSENT: carotid bruit, JVD, lymphadenopathy, thyromegaly Respiratory exam: PRESENT: clear to auscultation yessy, symmetrical, unlabored. ABSENT: rales, rhonchi, wheezes Cardiovascular exam: PRESENT: RRR. ABSENT: diastolic murmur, rubs, systolic murmur Pulses: PRESENT: normal carotid pulses, normal radial pulses Vascular exam: PRESENT: normal capillary refill GI/Abdominal exam: PRESENT: normal bowel sounds, soft. ABSENT: distended, guarding, mass, organolmegaly, rebound, tenderness Rectal exam: PRESENT: deferred Extremities exam: PRESENT: full ROM. ABSENT: calf tenderness, clubbing, pedal edema Musculoskeletal exam: PRESENT: ambulatory Neurological exam: PRESENT: alert, awake, oriented to person, oriented to place , oriented to time, oriented to situation, CN II-XII grossly intact. ABSENT: motor sensory deficit Psychiatric exam: PRESENT: appropriate affect, normal mood. ABSENT: homicidal ideation, suicidal ideation Skin exam: PRESENT: dry, intact, warm. ABSENT: cyanosis, rash Results Laboratory Results: 12/02/16 04:29 12/02/16 04:29 Impressions: Head MRI 12/01/16 00:00 IMPRESSION: Abnormal signal intensity is identified at the level of the brainstem on the left on the diffusion-weighted sequences consistent with an area of recent infarction. No other significant intracranial abnormalities were identified. EVIDENCE OF ACUTE STROKE: Yes Chest X-Ray 12/01/16 07:36 IMPRESSION: NO ACUTE RADIOGRAPHIC FINDING IN THE CHEST. Head CT 12/01/16 07:36 IMPRESSION: NORMAL BRAIN CT WITHOUT CONTRAST. Carotid Doppler Study 12/01/16 09:51 IMPRESSION: NO HEMODYNAMICALLY SIGNIFICANT STENOSIS. Assessment & Plan - Diagnosis (1) Left pontine CVA Is this a current diagnosis for this admission?: YesPlan: She will have PT, OT and aspirin and statin therapy. Most likely need acute rehab placement post discharge (2) Diabetes mellitus Qualifiers: Diabetes mellitus type: type 2 Diabetes mellitus complication status: with circulatory complication Is this a current diagnosis for this admission?: YesPlan: Been noncompliant with medications will restart oral meds and sliding scale (3) Dyslipidemia Is this a current diagnosis for this admission?: YesPlan: Continue statin (4) Essential hypertension Is this a current diagnosis for this admission?: YesPlan: Continue home medications and monitor (5) Tobacco abuse Is this a current diagnosis for this admission?: YesPlan: Counseled. Nicotine replacement (6) Morbid exogenous obesity Is this a current diagnosis for this admission?: YesPlan: Patient was counseled - Time Time Spent with patient: 25-34 minutes Critical Time spent with patient: 15-24 minutes Medications reviewed and adjusted accordingly: Yes
[2016-12-03] MEDS ORDERED: LIDOCAINE 5% (700 MG) TRANSDERMAL ADH..PATCH TP ONE (13:00)
--- NOTE | 2016-12-03 13:48 | EKG REPORT ---
SEVERITY:- ABNORMAL ECG - SINUS RHYTHM ABNRM R PROG, CONSIDER ASMI OR LEAD PLACEMENT : Confirmed by: Lucía Leblanc MD 03-Dec-2016 13:47:25
--- NOTE | 2016-12-03 14:56 | XCELERA REPORT ---
[address] [address] Transthoracic Echocardiogram Report Name: RUPERT LOU Age: 56 yrs Gender: Female : 1960 Patient Status: Inpatient Patient Location: [id number]\S\318\[id number]\B Study Date: 12/01/2016 01:02 PM Height: 66 in Weight: 275 lb BSA: 2.3 m2 Procedure: A complete two-dimensional transthoracic echocardiogram was performed (2D, M-mode, spectral and color flow Doppler). The study was technically difficult with many images being suboptimal in quality. Reason For Study: CVA Ordering Physician: EMMANUEL ZABALA Performed By: Gil Nair Interpretation Summary The study was technically difficult with many images being suboptimal in quality. Left ventricular systolic function is low normal. There is borderline concentric left ventricular hypertrophy. Doppler measurements suggest pseudonormalized left ventricular relaxation, which is associated with grade II/IV or mild to moderate diastolic dysfunction The left ventricle is borderline dilated. Wall motion cannot be accurately commented on, but no definite regional wall motion abnormalities noted. The right ventricle is borderline dilated. The left atrium is mildly dilated. The right atrium is normal in size There is a trace to mild amount of mitral regurgitation There is no mitral valve stenosis. There is a mild amount of aortic regurgitation There is no aortic valve stenosis There is a trace or physiologic amount of tricuspid regurgitation Tricuspid regurgitation jet envelope not well defined to measure RV systolic pressure accurately. The aortic root is not well visualized. The inferior vena cava was not well visualized There is no pericardial effusion. No definite cardiac source of CVA/TIA noted on this particular trans- thoracic study. Consider ALEKSEY if clinically indicated. May consider mobile cardiac telemetry monitoring (MCT) for ruling out transient AFIB. MMode/2D Measurements \T\ Calculations RVDd: 2.7 cm LVIDd: 5.8 cm FS: 43.7 % Ao root diam: 3.9 cm IVSd: 0.95 cm LVIDs: 3.3 cm EDV(Teich): 165.8 ml LVPWd: 1.0 cm ESV(Teich): 42.9 ml Ao root area: 11.7 cm2 EF(Teich): 74.1 % LA dimension: 4.4 cm Doppler Measurements \T\ Calculations MV E max ryanne: MV P1/2t max ryanne: Ao V2 max: LV V1 max P.0 cm/sec 77.5 cm/sec 158.2 cm/sec 4.6 mmHg MV A max ryanne: MV P1/2t: 70.3 msec Ao max PG: LV V1 max: 90.1 cm/sec 10.0 mmHg 106.9 cm/sec MV E/A: 0.82 MVA(P1/2t): 3.1 cm2 MV dec slope: 323.0 cm/sec2 PA V2 max: PI end-d ryanne: TR max ryanne: RAP systole: 87.9 cm/sec 88.2 cm/sec 189.8 cm/sec 10.0 mmHg PA max PG: TR max P.1 mmHg 14.5 mmHg RVSP(TR): 24.5 mmHg Left Ventricle The left ventricle is borderline dilated. There is borderline concentric left ventricular hypertrophy. Left ventricular systolic function is low normal. Doppler measurements suggest pseudonormalized left ventricular relaxation, which is associated with grade II/IV or mild to moderate diastolic dysfunction. Wall motion cannot be accurately commented on, but no definite regional wall motion abnormalities noted. Right Ventricle The right ventricle is borderline dilated. The right ventricular systolic function is normal. Atria The right atrium is normal in size. The left atrium is mildly dilated. Interarterial septum not well visualized and not well dopplered. Cannot comment on ASD/PFO presence. Mitral Valve The mitral valve is grossly normal. There is no mitral valve stenosis. There is a trace to mild amount of mitral regurgitation. Aortic Valve The aortic valve is grossly normal. There is no aortic valve stenosis. There is a mild amount of aortic regurgitation. Tricuspid Valve The tricuspid valve is not well visualized, but is grossly normal. There is no tricuspid stenosis. There is a trace or physiologic amount of tricuspid regurgitation. Tricuspid regurgitation jet envelope not well defined to measure RV systolic pressure accurately. Pulmonic Valve The pulmonic valve is not well visualized. Great Vessels The aortic root is not well visualized. The inferior vena cava was not well visualized. Effusions There is no pericardial effusion. Incidental Findings No definite cardiac source of CVA/TIA noted on this particular trans- thoracic study. Consider ALEKSEY if clinically indicated. May consider mobile cardiac telemetry monitoring (MCT) for ruling out transient AFIB. : EMMANUEL ZABALA > Angel Phelan
[2016-12-03] MEDS: ATORVASTATIN CALCIUM 40 MG TABLET PO SCH (22:02)
[2016-12-04] MEDS: PREGABALIN 100 MG CAPSULE PO SCH ×3 (05:40→23:29)
[2016-12-04] MEDS ORDERED: ONDANSETRON HCL INJ/PF 4 MG/2 ML SDV IV PRN (07:41)
[2016-12-04] MEDS ORDERED: ACETAMINOPHEN 325 MG TABLET PO PRN (07:43)
[2016-12-04] MEDS ORDERED: MAGNESIUM HYDROXIDE SUSP 30 ML UDCUP PO PRN (07:43)
[2016-12-04] MEDS: INSULIN LISPRO 100 UNIT/ML 3 ML VIAL SUBCUT PRN ×2 (09:51→23:32)
[2016-12-04] MEDS: INSULIN GLARGINE,HUM.REC.ANLOG 1,000 UNIT/10 ML UNIT SUBCUT SCH ×2 (09:51→23:32)
[2016-12-04] MEDS: FAMOTIDINE 20 MG TABLET PO SCH ×2 (09:52→23:31)
[2016-12-04] MEDS: CLONIDINE HCL 0.1 MG TABLET PO SCH ×2 (09:52→23:30)
[2016-12-04] MEDS: AMLODIPINE BESYLATE 10 MG TABLET PO SCH (09:52)
[2016-12-04] MEDS: ASPIRIN 325 MG TABLET, ENT COATED PO SCH (09:52)
[2016-12-04] MEDS: ENOXAPARIN SODIUM INJ 40 MG/0.4 ML DISP.SYRIN SUBCUT SCH (09:53)
[2016-12-04] MEDS: LIDOCAINE 5% (700 MG) TRANSDERMAL ADH..PATCH TP SCH (15:28)
[2016-12-04] MEDS: TRAMADOL HCL 50 MG TABLET PO PRN ×2 (15:30→23:31)
--- NOTE | 2016-12-04 15:42 | PDOC PROGRESS REPORT ---
Subjective Progress Note for:: 12/04/16 Subjective:: Patient seen on morning rounds. She is sitting on the side of the bed eating breakfast. She has a little more gross motor movement of the right upper extremity, right leg she is now able to lift 2 inches off the bed. Yesterday she had no movement.. Her speech is definitely clearer today than yesterday. She was able to ambulate with 2 assists with physical therapy today. We have discussed going to acute rehab. She states she would rather go home. Her son is only there some of the time. Physical therapy and occupational therapy recommend acute rehab post discharge. Physical Exam Vital Signs: Temp Pulse Resp BP Pulse Ox 97.5 F 80 16 136/87 H 99 12/04/16 07:32 12/04/16 07:32 12/04/16 07:32 12/04/16 07:32 12/04/16 07:32 Intake & Output 12/03/16 12/04/16 12/05/16 06:59 06:59 06:59 Intake Total 1070 1795 Output Total 350 1600 Balance 720 195 Weight 123.2 kg 122.6 kg General appearance: PRESENT: no acute distress, morbidly obese, well-developed, well-nourished Head exam: PRESENT: atraumatic, normocephalic Eye exam: PRESENT: conjunctiva pink, EOMI, PERRLA. ABSENT: scleral icterus Ear exam: PRESENT: normal external ear exam Mouth exam: PRESENT: moist, neck supple, tongue midline Neck exam: ABSENT: carotid bruit, JVD, lymphadenopathy, thyromegaly Respiratory exam: PRESENT: clear to auscultation yessy, symmetrical, unlabored. ABSENT: rales, rhonchi, wheezes Cardiovascular exam: PRESENT: RRR. ABSENT: diastolic murmur, rubs, systolic murmur Pulses: PRESENT: normal carotid pulses, normal radial pulses Vascular exam: PRESENT: normal capillary refill GI/Abdominal exam: PRESENT: normal bowel sounds, soft. ABSENT: distended, guarding, mass, organolmegaly, rebound, tenderness Rectal exam: PRESENT: deferred Extremities exam: PRESENT: +2 edema Musculoskeletal exam: PRESENT: ambulatory, deformity Neurological exam: PRESENT: alert, awake, oriented to person, oriented to place , oriented to time, oriented to situation, abnormal gait, motor sensory deficit Psychiatric exam: PRESENT: appropriate affect, normal mood. ABSENT: homicidal ideation, suicidal ideation Skin exam: PRESENT: dry, intact, warm. ABSENT: cyanosis, rash Results Laboratory Results: 12/02/16 04:29 12/02/16 04:29 Impressions: Head MRI 12/01/16 00:00 IMPRESSION: Abnormal signal intensity is identified at the level of the brainstem on the left on the diffusion-weighted sequences consistent with an area of recent infarction. No other significant intracranial abnormalities were identified. EVIDENCE OF ACUTE STROKE: Yes Chest X-Ray 12/01/16 07:36 IMPRESSION: NO ACUTE RADIOGRAPHIC FINDING IN THE CHEST. Head CT 12/01/16 07:36 IMPRESSION: NORMAL BRAIN CT WITHOUT CONTRAST. Carotid Doppler Study 12/01/16 09:51 IMPRESSION: NO HEMODYNAMICALLY SIGNIFICANT STENOSIS. Assessment & Plan - Diagnosis (1) Left pontine CVA Is this a current diagnosis for this admission?: YesPlan: She will have PT, OT and aspirin and statin therapy. Most likely need acute rehab placement post discharge (2) Diabetes mellitus Qualifiers: Diabetes mellitus type: type 2 Diabetes mellitus complication status: with circulatory complication Is this a current diagnosis for this admission?: YesPlan: Been noncompliant with medications will restart oral meds and sliding scale (3) Dyslipidemia Is this a current diagnosis for this admission?: YesPlan: Continue statin (4) Essential hypertension Is this a current diagnosis for this admission?: YesPlan: Continue home medications and monitor (5) Tobacco abuse Is this a current diagnosis for this admission?: YesPlan: Counseled. Nicotine replacement (6) Morbid exogenous obesity Is this a current diagnosis for this admission?: YesPlan: Patient was counseled - Time Time Spent with patient: 25-34 minutes Critical Time spent with patient: 15-24 minutes Medications reviewed and adjusted accordingly: Yes
[2016-12-04] MEDS: ATORVASTATIN CALCIUM 40 MG TABLET PO SCH (23:29)
[2016-12-05] MEDS: PREGABALIN 100 MG CAPSULE PO SCH ×3 (05:28→22:34)
[2016-12-05] MEDS: INSULIN LISPRO 100 UNIT/ML 3 ML VIAL SUBCUT PRN ×3 (08:59→22:35)
[2016-12-05] MEDS: INSULIN GLARGINE,HUM.REC.ANLOG 1,000 UNIT/10 ML UNIT SUBCUT SCH ×2 (09:03→22:35)
[2016-12-05] MEDS: AMLODIPINE BESYLATE 10 MG TABLET PO SCH (09:05)
[2016-12-05] MEDS: ASPIRIN 325 MG TABLET, ENT COATED PO SCH (09:06)
[2016-12-05] MEDS: FAMOTIDINE 20 MG TABLET PO SCH ×2 (09:07→22:34)
[2016-12-05] MEDS: CLONIDINE HCL 0.1 MG TABLET PO SCH ×2 (09:07→22:35)
[2016-12-05] MEDS: LIDOCAINE 5% (700 MG) TRANSDERMAL ADH..PATCH TP SCH (09:29)
[2016-12-05 09:50] LABS: HEMATOCRIT 40.8 % (36.0-47.0); HEMOGLOBIN 14.3 g/dL (12.0-15.5); HGB HCT DIFFERENCE 2.1; MEAN CORPUSCULAR HEMOGLOBIN 32.2 pg (27.0-33.4); MEAN CORPUSCULAR VOLUME 92 fl (80-97); RED BLOOD COUNT 4.43 10^6/uL (3.72-5.28); RED CELL DISTRIBUTION WIDTH 14.9 % (11.5-14.0); WHITE BLOOD COUNT 6.9 10^3/uL (4.0-10.5)
[2016-12-05] MEDS: ENOXAPARIN SODIUM INJ 40 MG/0.4 ML DISP.SYRIN SUBCUT SCH (11:20)
--- NOTE | 2016-12-05 14:03 | PROGRESS NOTE E ---
Progress Note NAME: RUPERT LOU : 1960 AGE: 56Y DATE: 12/05/2016 ROOM: 318 SUBJECTIVE: The patient is lying in bed. The patient continues to have significant right upper extremity weakness, actually it is flaccid at this time. The patient denies any nausea, vomiting, diarrhea. No shortness of breath, dizziness, chest pain. No fevers or chills. Patient has been afebrile. Her blood pressure has been in a good range. The patient does not voice any other concerns at this time. REVIEW OF SYSTEMS: The rest of the review of systems is negative. MEDICATIONS: Medications have been reviewed. OBJECTIVE: GENERAL: The patient is a 56-year-old female who is awake, alert, and oriented to person, place, time, and situation. She is verbal, conversational, does not appear to be in any acute distress, just a little delayed. VITAL SIGNS: As follows: Temperature is 97.9, pulse 71, respirations 19, blood pressure 142/81, oxygen saturation is 92% on room air. SKIN: Warm and dry. There is no rash. She is not diaphoretic. HEENT: Pupils equal, round, and reactive to light and accommodation. Conjunctivae are pink. No JVP. CARDIOVASCULAR: Heart is regular with no murmur or rub. CHEST: Clear, symmetrical, unlabored. ABDOMEN: Soft, nontender, nondistended. BACK: No CVA tenderness or sacral edema. EXTREMITIES: No clubbing, cyanosis, edema. PSYCHIATRIC: Appropriate affect, pleasant mood. 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 Right lower extremity is 2/4. Speech is slow but apparently improved in comparison to yesterday. DIAGNOSTICS: Lab values are as follows. Hematology obtained on 12/05/2016: WBCs are 6.9, hemoglobin is 14.3, hematocrit is 40.8, platelet count is 162,000. IMPRESSION AND PLAN: 1. LEFT PONTINE CEREBROVASCULAR ACCIDENT. Will continue therapies as well as aspirin and statin therapy. The patient is currently awaiting acute rehab placement. Will follow. 2. DIABETES MELLITUS, TYPE 2. Will continue the patient's home medications. Glucose has been well controlled. 3. DYSLIPIDEMIA. Will continue fluvastatin. 4. HYPERTENSION. Have resumed the patient's blood pressure medications given that her permissive hypertensive window is closed. 5. TOBACCO DEPENDENCY. Will continue the p.r.n. nicotine patch. 6. MORBID OBESITY. The patient has been counseled. DISPOSITION: THE PATIENT IS A FULL CODE. Pending the patient's symptomatology and diagnostic findings, the patient can go to a rehab facility as soon as a bed is available. Time spent on this followup, including assessment/plan, physical examination, patient education, is 25 minutes. DICTATING PHYSICIAN: TIMO VÁSQUEZ NP [id number] [id number] PHY#: [id number] ID: [id number] JOB#: [id number] ACCT: [id number] cc: >
[2016-12-05] MEDS: TRAMADOL HCL 50 MG TABLET PO PRN (22:33)
[2016-12-05] MEDS: ATORVASTATIN CALCIUM 40 MG TABLET PO SCH (22:35)
[2016-12-06] MEDS: PREGABALIN 100 MG CAPSULE PO SCH ×3 (05:56→22:08)
[2016-12-06] MEDS: ENOXAPARIN SODIUM INJ 40 MG/0.4 ML DISP.SYRIN SUBCUT SCH (11:09)
[2016-12-06] MEDS: FAMOTIDINE 20 MG TABLET PO SCH ×2 (11:10→22:08)
[2016-12-06] MEDS: AMLODIPINE BESYLATE 10 MG TABLET PO SCH (11:10)
[2016-12-06] MEDS: ASPIRIN 325 MG TABLET, ENT COATED PO SCH (11:10)
[2016-12-06] MEDS: INSULIN GLARGINE,HUM.REC.ANLOG 1,000 UNIT/10 ML UNIT SUBCUT SCH ×2 (11:10→22:07)
[2016-12-06] MEDS: CLONIDINE HCL 0.1 MG TABLET PO SCH ×2 (11:11→22:08)
[2016-12-06] MEDS: LIDOCAINE 5% (700 MG) TRANSDERMAL ADH..PATCH TP SCH (11:11)
--- NOTE | 2016-12-06 14:14 | PROGRESS NOTE E ---
Progress Note NAME: RUPERT LOU : 1960 AGE: 56Y DATE: 12/06/2016 ROOM: 318 SUBJECTIVE: The patient is out of bed to the bedside chair. She was able to participate in therapy. She was able to almost walk to her door. The patient denies any nausea, vomiting, diarrhea. No shortness of breath, dizziness, chest pain. No fevers or chills. The patient has been afebrile and blood pressure has been in a good range. The patient does not voice any other concerns at this time. REVIEW OF SYSTEMS: The rest of the review of systems is negative. MEDICATIONS: Medications have been reviewed. OBJECTIVE: GENERAL: The patient is a 56-year-old female who is awake, alert, and oriented to person, place, time, and situation. She is verbal, conversational, does not appear to be in any acute distress. VITAL SIGNS: As follows: Temperature is 97.6, pulse 71, respirations 20, blood pressure 131/73, oxygen saturation is 92% on room air. SKIN: Warm and dry. No rash, not diaphoretic. HEENT: Pupils equal, round, and reactive to light and accommodation. Conjunctivae pink. No JVP. CARDIOVASCULAR: Heart is regular with no murmur or rub. CHEST: Clear, symmetrical, unlabored. ABDOMEN: Soft, nontender, nondistended. BACK: No CVA tenderness or sacral edema. EXTREMITIES: No clubbing, cyanosis, edema. Right extremity is still very much a deficit. DIAGNOSTICS: Lab values are as follows. Hematology obtained on 12/05/2016: WBCs are 6.9, hemoglobin is 14.3, hematocrit is 40.8, platelet count is 162,000. IMPRESSION AND PLAN: 1. LEFT PONTINE CEREBROVASCULAR ACCIDENT. Continue to work with therapies as well as aspirin and statin therapy. The patient is currently awaiting acute rehab placement. Will follow. 2. DIABETES MELLITUS, TYPE 2. Have continued the patient's home medications. Glucoses have been very well controlled. 3. DYSLIPIDEMIA. Will continue statin. 4. HYPERTENSION. The patient's permissive hypertensive window has closed. Will continue home medications. 5. TOBACCO DEPENDENCY. Will continue p.r.n. nicotine patch. 6. MORBID OBESITY. The patient has been counseled. DISPOSITION: THE PATIENT IS A FULL CODE. Pending the patient's symptomatology and diagnostic findings, the patient has been downgraded to a medical bed and can go to a rehab facility as soon as a bed is available. Time spent on this followup, including assessment/plan, physical examination, patient education, is 25 minutes. DICTATING PHYSICIAN: TIMO VÁSQUEZ NP [id number] [id number] PHY#: [id number] ID: [id number] JOB#: [id number] ACCT: [id number] cc: >
--- NOTE | 2016-12-06 18:09 | TRANSFER SUMMARY E ---
Transfer Summary NAME: RUPERT LOU : 1960 AGE: 56Y ADMITTED: 12/01/2016 TRANSFERRED: 12/07/2016 RECEIVING FACILITY: [facility]. CODE STATUS: FULL CODE. PRIMARY CARE PROVIDER: Dr. Mark Nunez. TRANSFER DIAGNOSES: Include: 1. Left pontine cerebrovascular accident. 2. Diabetes mellitus type 2. 3. Dyslipidemia. 4. Hypertension. 5. Tobacco dependency. TRANSFER MEDICATIONS: Include: 1. Aspirin 325 mg p.o. daily. 2. Lipitor 40 mg p.o. q. hour of sleep. 3. Norvasc 10 mg p.o. daily. 4. Invokana 300 mg p.o. daily. 5. Catapres 0.1 mg p.o. q.12 h. 6. Flexeril 10 mg p.o. b.i.d. p.r.n. 7. BYDUREON-10 at 2 mg subcutaneous every 7 days. 8. Lantus 50 units subcutaneous q.12 h. 9. Novolog FlexPen before meals and at bedtime sliding scale coverage. 10. Nystatin 1 topical application b.i.d. p.r.n. 11. Lyrica 100 mg p.o. q.8 h. 12. Clinoril 200 mg p.o. 12 hours p.r.n. DIET: Heart healthy, diabetic. ACTIVITY: Per rehab standards. DIAGNOSTICS: Lab values are as follows: Hematology obtained on 12/05/2016; WBCs are 6.9, hemoglobin is 14.3, hematocrit is 40.8, platelet count is 162,000. Coagulation obtained on 12/01/2016: PT is 12.7, INR is 0.89. Chemistry obtained on 12/02/2016: Sodium is 130, potassium 3.6, chloride is 106, carbon dioxide 24, BUN 11, creatinine is 0.45, glucose 147, A1c is 6.9, calcium is 9.2, bilirubin is 0.6, AST 42, ALT is 47, alkaline phosphatase 54, CK 143, CK-MB is 0.38, troponin 0.012, total protein 6.8, albumin 4.0, triglycerides are 365, cholesterol 142, LDL 64, VLDL is 73, HDL is 31. Urinalysis obtained on 12/01/2016: Color yellow, appearance clear, pH of 7.0, specific gravity is 1.033, protein negative, glucose greater than 500, ketones negative, occult blood negative, nitrite negative, bilirubin negative, urobilinogen is negative, leukocyte esterase is negative, WBCs 1, RBCs 2, epithelial squamous cells 1, ascorbic acid is negative. Toxicology obtained on 12/01/2016: Benzodiazepines are positive. Head MRI obtained on 12/01/2016 reveals abnormal signal densities identified at the level of the brainstem on the left on the diffuse weighted sequence consistent with an area of recent infarction. Chest x-ray obtained on 12/01/2016 reveals no acute radiographic finding of the chest. Head CT obtained on 12/01/[address] without contrast. Carotid Doppler study obtained on 12/01/2016 reveals no hemodynamically significant stenosis. Echocardiogram obtained on 12/01/2016 reveals left ventricular systolic function is normal with mild diastolic dysfunction. HISTORY OF PRESENT ILLNESS: The patient is a 56-year-old female with a past medical history of diabetes and hypertension. The patient presented to the emergency department with a chief complaint of right-sided weakness and slurred speech. The patient arrived via EMS when her son found her slumped against the bathroom. The patient reported difficulty with her right extremities began the day before as well as her slurred speech. The patient did not have anyone at home to take her to the hospital until her son came home from work, therefore the patient presented well outside of her window. The patient denied any headache. No recent trauma. No previous CVAs. The patient's initial CT did not reveal any abnormality, and the patient had a significant weakness and was referred to the hospitalist for admission and management. HOSPITAL COURSE: The patient was admitted to [facility]. MRI was suggested of the left pontine stroke. The patient had significant flaccidity of the right upper extremity that did improve slightly during admission. The patient's mobility is still significantly limited. The patient can only make it to the threshold of the door of her room due to the severity of her weakness. The patient's speech is improving; however, there is need for intense therapy, so the patient has been accepted for acute rehab. The patient was maximized on statin therapy as well as aspirin, and the patient's blood pressure medications were resumed outside of her permissive hypertensive improvement. The patient has made improvement and is ready for rehab. PHYSICAL EXAMINATION: GENERAL: On examination the patient is a well-developed, well-nourished, 56-year-old female who is awake, alert and oriented to person, place, time, and situation. She is verbal, conversational, does not appear to be in any acute distress. VITAL SIGNS: As follows: Temperature is 97.4, pulse 81, respirations 18, blood pressure 137/79, oxygen saturation 93% room air. SKIN: Warm and dry. No rash. Not diaphoretic. HEENT: Pupils equal, round, reactive to light and accommodation. Conjunctivae pink. NECK: No JVP. CARDIOVASCULAR SYSTEM: Heart is regular. There is no murmur or rub. CHEST: Clear, symmetrical, unlabored. ABDOMEN: Soft, nontender, nondistended. BACK: No CVA tenderness, sacral edema. EXTREMITIES: No clubbing, cyanosis, edema. NEUROLOGIC: The patient does have significant deficit of the right upper extremity. Right lower extremity still has deficit but still overall improved. DISCHARGE PLANNING: The patient will be received at the [facility]. Time spent on this transfer including assessment, plan, physical examination, patient education, and resource alignment is 35 minutes. DICTATING PHYSICIAN: TIMO VÁSQUEZ NP [id number] PHY#: [id number] ID: [id number] JOB#: [id number] ACCT: [id number] cc:TIMO VÁSQUEZ NP > [facility]
[2016-12-06] MEDS: TRAMADOL HCL 50 MG TABLET PO PRN ×2 (18:40→23:01)
[2016-12-06] MEDS: ATORVASTATIN CALCIUM 40 MG TABLET PO SCH (22:08)
[2016-12-06] MEDS: INSULIN LISPRO 100 UNIT/ML 3 ML VIAL SUBCUT PRN (22:08)
[2016-12-07] MEDS: PREGABALIN 100 MG CAPSULE PO SCH (05:27)
[2016-12-07 08:05] VITALS: BP 144/70
[2016-12-07] MEDS: AMLODIPINE BESYLATE 10 MG TABLET PO SCH (08:13)
[2016-12-07] MEDS: ASPIRIN 325 MG TABLET, ENT COATED PO SCH (08:13)
[2016-12-07] MEDS: INSULIN GLARGINE,HUM.REC.ANLOG 1,000 UNIT/10 ML UNIT SUBCUT SCH (08:13)
[2016-12-07] MEDS: INSULIN LISPRO 100 UNIT/ML 3 ML VIAL SUBCUT PRN (08:13)
[2016-12-07] MEDS: FAMOTIDINE 20 MG TABLET PO SCH (08:13)
[2016-12-07] MEDS: LIDOCAINE 5% (700 MG) TRANSDERMAL ADH..PATCH TP SCH (08:14)
[2016-12-07] MEDS: CLONIDINE HCL 0.1 MG TABLET PO SCH (08:14)
[2016-12-07] MEDS: TRAMADOL HCL 50 MG TABLET PO PRN (08:19)
[2016-12-07] MEDS: ENOXAPARIN SODIUM INJ 40 MG/0.4 ML DISP.SYRIN SUBCUT SCH (08:30)
== END 2016-12-07 08:56 | DRG 65 ==
LOC: ER 07:11 → UNDOADMIN 09:41 → EH 09:41 → 3W 12:49
PROVIDERS: ADMIT Internal Medicine; ATTEND Internal Medicine
DX: I63.9 Cerebral infarction, unspecified (principal); G81.91 Hemiplegia, unspecified affecting right dominant side; Z68.41 Body mass index [BMI] 40.0-44.9, adult; R47.81 Slurred speech; I10 Essential (primary) hypertension; J44.9 Chronic obstructive pulmonary disease, unspecified; F17.210 Nicotine dependence, cigarettes, uncomplicated; E78.5 Hyperlipidemia, unspecified; E78.00 Pure hypercholesterolemia, unspecified; E66.01 Morbid (severe) obesity due to excess calories; M19.90 Unspecified osteoarthritis, unspecified site; F32.9 Major depressive disorder, single episode, unspecified; E11.9 Type 2 diabetes mellitus without complications; Z79.4 Long term (current) use of insulin; Z79.899 Other long term (current) drug therapy; Z82.61 Family history of arthritis; Z82.3 Family history of stroke; Z83.3 Family history of diabetes mellitus; Z82.49 Family history of ischemic heart disease and other diseases of the circulatory system; Z80.9 Family history of malignant neoplasm, unspecified; Z90.710 Acquired absence of both cervix and uterus; Z91.14 Patient's other noncompliance with medication regimen
CPT/HCPCS: 36415; 70450; 70551; 71010; 80048; 80053; 80061; 80307; 81001; 82550; 82553; 82962; 83036; 84484; 85025; 85027; 85610; 85730; 93005; 93010; 93306; 93880; 94660; 99285; G8996-GN; G8997-GN; G8998-GN; J1650; J1815; J3490

== ENCOUNTER 2018-01-22 08:19 | Emergency (ER) | payer MEDICAID ==
[2018-01-22] MEDS ORDERED: ACETAMINOPHEN 325 MG TABLET PO ONE (09:46)
[2018-01-22] MEDS ORDERED: TRAMADOL HCL 50 MG TABLET PO ONE (09:47)
[2018-01-22 10:57] LABS: ABSOLUTE EOSINOPHILS # (AUTO) 0.2 10^3/uL (0.0-0.6); ABSOLUTE LYMPHOCYTES (AUTO) 2.1 10^3/uL (0.5-4.7); ABSOLUTE MONOCYTES (AUTO) 0.5 10^3/uL (0.1-1.4); ABSOLUTE NEUT (AUTO) 6.1 10^3/uL (1.7-8.2); BASOPHILS % (AUTO) 0.4 % (0-2); EOSINOPHILS % (AUTO) 2.1 % (0-6); HEMATOCRIT 41.6 % (36.0-47.0); HEMOGLOBIN 14.2 g/dL (12.0-15.5); LYMPHOCYTES % (AUTO) 23.8 % (13-45); MEAN CORPUSCULAR HGB CONC 34.2 g/dL (32.0-36.0); MEAN CORPUSCULAR VOLUME 88 fl (80-97); MONOCYTES % (AUTO) 5.4 % (3-13); PLATELET COUNT 200 10^3/uL (150-450); RED BLOOD COUNT 4.73 10^6/uL (3.72-5.28); RED CELL DISTRIBUTION WIDTH 15.3 % (11.5-14.0); SEGMENTED NEUTROPHILS % (AUTO) 68.3 % (42-78); TOTAL CELLS COUNTED % (AUTO) 100 %; WHITE BLOOD COUNT 8.9 10^3/uL (4.0-10.5)
[2018-01-22 11:03] LABS: APPEARANCE,URINE CLEAR; BILIRUBIN,URINE NEGATIVE (NEGATIVE); COLOR,URINE YELLOW; GLUCOSE, URINE >=500 mg/dL (NEGATIVE); KETONES,URINE NEGATIVE (NEGATIVE); LEUKOCYTE ESTERASE,URINE NEGATIVE (NEGATIVE); NITRITE,URINE NEGATIVE (NEGATIVE); PROTEIN,URINE NEGATIVE (NEGATIVE); URINE SPECIFIC GRAVITY 1.035; UROBILINOGEN,URINE NEGATIVE mg/dL (<2.0)
--- NOTE | 2018-01-22 11:07 | RADIOLOGY REPORT (SQ) ---
EXAM DESCRIPTION: HIP BILATERAL COMPLETED DATE/TIME: 01/22/2018 10:18 am REASON FOR STUDY: bi hip pain COMPARISON: None. NUMBER OF VIEWS: Two views TECHNIQUE: AP pelvis and additional frog-leg view of both hips. LIMITATIONS: None. FINDINGS: MINERALIZATION: Normal. HIPS: Mild degenerative changes. Mild joint space narrowing. Subchondral cysts of the acetabulum. PELVIS AND SACRUM: No acute fracture or dislocation. No worrisome bone lesions. PUBIS AND ISCHIUM: No acute fracture. LOWER LUMBAR SPINE: No significant findings as visualized. SOFT TISSUES: No findings. OTHER: No other significant finding. IMPRESSION: Mild degenerative changes. TECHNICAL DOCUMENTATION: JOB ID: [id number] [employer]- All Rights Reserved Reading location - IP/workstation name: [email or web address]
--- NOTE | 2018-01-22 11:09 | RADIOLOGY REPORT (SQ) ---
EXAM DESCRIPTION: L SPINE WHOLE COMPLETED DATE/TIME: 01/22/2018 10:18 am REASON FOR STUDY: low back pain, bilateral upper thigh pain COMPARISON: None. NUMBER OF VIEWS: Five views including obliques. TECHNIQUE: AP, lateral, oblique, and sacral radiographic images acquired of the lumbar spine. LIMITATIONS: None. FINDINGS: MINERALIZATION: Osteopenia. SEGMENTATION: Normal. No transitional anatomy. ALIGNMENT: Normal. VERTEBRAE: Maintained height. No fracture or worrisome bone lesion. DISCS: Disc space narrowing of the T12-L1 and L1-L2 discs. POSTERIOR ELEMENTS: No pars defects. Facet arthropathy. HARDWARE: None in the spine. PARASPINAL SOFT TISSUES: Normal. PELVIS: Intact as visualized. No fractures or worrisome bone lesions. SI joints intact. OTHER: No other significant finding. IMPRESSION: Upper lumbar degenerative disc disease. Lower lumbar facet arthritis. TECHNICAL DOCUMENTATION: JOB ID: [id number] [employer]- All Rights Reserved Reading location - IP/workstation name: [email or web address]
[2018-01-22 11:16] LABS: ALANINE AMINOTRANSFERASE 29 U/L (9-52); ALBUMIN 4.5 g/dL (3.5-5.0); ALKALINE PHOSPHATASE 72 U/L (38-126); ANION GAP 11 (5-19); ASPARTATE AMINO TRANSFERASE 29 U/L (14-36); BILIRUBIN,DIRECT 0.3 mg/dL (0.0-0.4); BILIRUBIN,TOTAL 0.8 mg/dL (0.2-1.3); BLOOD UREA NITROGEN 19 mg/dL (7-20); CALCIUM 9.7 mg/dL (8.4-10.2); CARBON DIOXIDE 24 mmol/L (22-30); CHLORIDE 107 mmol/L (98-107); CREATINE KINASE 87 U/L (30-135); GLUCOSE 123 mg/dL (75-110); POTASSIUM 3.8 mmol/L (3.6-5.0); SODIUM 141.6 mmol/L (137-145); TOTAL PROTEIN 7.5 g/dL (6.3-8.2)
[2018-01-22 11:17] LABS: ALCOHOL < 10 mg/dL (NONE DETECTED)
[2018-01-22 11:23] LABS: URINE AMPHETAMINES SCREEN NEGATIVE; URINE BENZODIAZEPINES SCREEN NEGATIVE; URINE COCAINE SCREEN NEGATIVE; URINE MARIJUANA (THC) SCREEN NEGATIVE; URINE PHENCYCLIDINE SCREEN NEGATIVE
[2018-01-22 11:24] LABS: URINE BARBITURATES SCREEN NEGATIVE; URINE METHADONE SCREEN NEGATIVE
--- NOTE | 2018-01-22 11:38 | ER Document Report ---
HPI - HPI Patient complains to provider of: Low back pain and posterior bilateral thigh pain Onset: Other - Sunday Quality of pain: Achy Pain Level: 5 Context: 57-year-old female complaining of low back pain that started on Sunday after doing exercises in bed. It then radiated into both hips and upper posterior thighs. Hurts more with movement. Hurts more with walking. No saddle anesthesia, no fever or chills, no IV drug use, no history of cancer. Pt also had some diarrhea today. Associated Symptoms: None Exacerbated by: Movement, Walking Relieved by: Denies Similar symptoms previously: Yes Recently seen / treated by doctor: No - ROS ROS below otherwise negative: Yes Systems Reviewed and Negative: Yes All other systems reviewed and negative - REPRODUCTIVE Reproductive: DENIES: : Past Medical History - General Information source: Patient - Social History Smoking Status: Current Every Day Smoker Chew tobacco use (# tins/day): No Frequency of alcohol use: None Drug Abuse: None Lives with: Family Family History: Arthritis, CAD, CVA, DM, Hyperlipidemia, Hypertension, Malignancy Patient has suicidal ideation: No Patient has homicidal ideation: No - Past Medical History Cardiac Medical History: Reports: Hx Hypercholesterolemia, Hx Hypertension Pulmonary Medical History: Reports: Hx COPD, Hx Pneumonia Endocrine Medical History: Reports: Hx Diabetes Mellitus Type 2 Renal/ Medical History: Denies: Hx Peritoneal Dialysis Musculoskeletal Medical History: Reports Hx Arthritis, Reports Hx Musculoskeletal Deformity, Reports Hx Musculoskeletal Trauma Psychiatric Medical History: Reports: Hx Depression Past Surgical History: Reports: Hx Gynecologic Surgery - ablation, Hx Hysterectomy - Immunizations Immunizations up to date: Yes Hx Diphtheria, Pertussis, Tetanus Vaccination: Yes Vertical Provider Document - CONSTITUTIONAL Agree With Documented VS: Yes Exam Limitations: No Limitations - INFECTION CONTROL TRAVEL OUTSIDE OF THE [place] IN LAST 30 DAYS: No - HEENT HEENT: Normocephalic - NECK Neck: Supple - RESPIRATORY Respiratory: Breath Sounds Normal, No Respiratory Distress - CARDIOVASCULAR Cardiovascular: Regular Rate, Regular Rhythm - GI/ABDOMEN Gastrointestinal: Abdomen Soft, Abdomen Non-Tender, No Organomegaly, Normal Bowel Sounds - MUSCULOSKELETAL/EXTREMETIES Musculoskeletal/Extremeties: MAEW, FROM, Tender - posterior bilaeral hips, lumber spinous muscles Notes: 2+ yessy dp - NEURO Level of Consciousness: Awake Motor/Sensory: No Motor Deficit, No Sensory Deficit Deep Tendon Reflexes: 2+ - Bilateral patellar and ankle - DERM Integumentary: No Rash Course - Vital Signs Vital signs: Temp Pulse Resp BP Pulse Ox 97.3 F 76 16 133/71 H 97 01/22/18 08:21 01/22/18 08:21 01/22/18 08:21 01/22/18 08:21 01/22/18 08:21 - Laboratory Result Diagrams: 01/22/18 10:43 01/22/18 10:43 Laboratory results interpreted by me: 01/22/18 01/22/18 01/22/18 10:32 10:43 10:43 RDW 15.3 H Creatinine 0.45 L Glucose 123 H Urine Glucose (UA) >=500 H Urine Blood MODERATE H Discharge - Discharge Clinical Impression: exacerbation of chronic back pain, bilateral hip/thigh pain, Arthritis Condition: Good Disposition: HOME, SELF-CARE Instructions: Arthralgia ([facility]), Arthritis ([facility]), Chronic Back Pain ([facility]), Ibuprofen (General) ([facility]), Muscle Relaxers ([facility]), Muscle Strain ([facility]), Myalagia (Muscle Pain) ([facility]) Additional Instructions: Muscle relaxers up to 3 times a day for muscle pain.spasms Anti-inflammatory medication Motrin 3 times a day pain medication as needed. hydrocodone with tylenol Heat Return to the emergency room for any worsening of the symptoms Prescriptions: Hydrocodone Bit/Acetaminophen [Hydrocodon-Acetaminophen 5-325] 1 - 2 each PO Q4HP PRN #15 tablet PRN Reason: Ibuprofen [Motrin 600 mg Tablet] 600 mg PO Q8HP PRN #30 tablet PRN Reason: Cyclobenzaprine HCl [Flexeril 10 Mg Tablet] 10 mg PO TIDP PRN #20 tablet PRN Reason: Referrals: KYLAH PRAKASH MD [Primary Care Provider] - Follow up as needed
[2018-01-22] MEDS ORDERED: ONDANSETRON 4 MG TAB.RAPDIS PO ONE (11:58)
[2018-01-22] MEDS ORDERED: MORPHINE SULFATE 10 MG/ML INJ IV ONE (11:58)
[2018-01-22 13:30] VITALS: BP 131/65
== END 2018-01-22 13:30 | disposition home or self-care (01) ==
LOC: ER 08:19
DX: M47.9 Spondylosis, unspecified (principal); M54.5 Low back pain; G89.29 Other chronic pain; M79.652 Pain in left thigh; M79.651 Pain in right thigh; M25.551 Pain in right hip; M25.552 Pain in left hip; F17.200 Nicotine dependence, unspecified, uncomplicated; I10 Essential (primary) hypertension; J44.9 Chronic obstructive pulmonary disease, unspecified; E11.9 Type 2 diabetes mellitus without complications
CPT/HCPCS: 99284; 96374; 36415; 80307 ×2; 82550; 85025; 80053; 81001; 72110; 73522; J3490; S0119; J2270

== ENCOUNTER → 2018-09-12 | Outpatient (CLI) | payer MEDICAID ==
--- NOTE | 2018-09-12 14:34 | RADIOLOGY REPORT (SQ) ---
EXAM DESCRIPTION: MRI LUMBAR SPINE WITHOUT COMPLETED DATE/TIME: 09/12/2018 1:17 pm REASON FOR STUDY: OTHER SPONDYLOSIS, LUMBAR REGION M47.896 OTHER SPONDYLOSIS, LUMBAR REGION COMPARISON: Lumbar spine plain films 01/22/2018 TECHNIQUE: Sagittal and Axial imaging includes T1, T2, STIR and gradient echo sequences. Coronal T2/ HASTE imaging. LIMITATIONS: None. FINDINGS: VISUALIZED UPPER ABDOMEN: Limited evaluation. No acute or suspicious findings suggested. SEGMENTATION: No transitional anatomy. The lowest well-developed disc space is labeled L5-S1. ALIGNMENT: Convex rightward lumbar curvature VERTEBRAE: Intact. BONE MARROW: Normal. No marrow replacement or reactive changes. Benign T11 vertebral body hemangioma . DISC SIGNAL: Diffuse decreased T2 weighted intervertebral disc signal. Disc space loss of height at L1-2 and L3-4 POSTERIOR ELEMENTS: Generally intact. No pars defect evident. HARDWARE: None in the spine. CORD AND CONUS: Normal in size and signal intensity. Conus at the L1 level. SOFT TISSUES: No aortic aneurysm seen. No bulky retroperitoneal adenopathy or mass. No paraspinal mas s or fluid. T11-12: At the upper edge of the field of view. No central stenosis. Mild bilateral facet arthropa thy causes very mild bilateral T11-12 foraminal narrowing. T12-L1: Minimal posterior disc bulging and mild bilateral facet and ligament hypertrophy is present without significant central or foraminal encroachment. L1-L2: Moderate bilateral facet hypertrophy and mild posterior disc bulging are present. No signific ant central canal or foraminal narrowing. L2-L3: Moderate bilateral facet hypertrophy is present without significant central canal or foraminal narrowing. L3-L4: A large central and left paracentral disc bulge/ protrusion is present. This finding along wi th bulky bilateral facet hypertrophy causes high-grade central canal stenosis, best shown on axial T2 image 17 and sagittal T2 images 6-9. There is complete effacement of the CSF around the lumbar nerv e roots, and asymmetric flattening of the thecal sac at the takeoff of the proximal L4 nerve roots le ft greater than right. Elsewhere at L4-5, there is mild right and moderate left foraminal narrowing without definite exiting L3 nerve root impingement. L4-L5: Broad diffuse posterior disc bulging and bulky bilateral facet and ligament hypertrophy causes borderline central canal narrowing with flattening of the thecal sac into a triangular shape. There is mild bilateral inferior foraminal narrowing without exit L4 nerve root impingement. L5-S1: Asymmetric right-sided facet hypertrophy is present with broad diffuse posterior disc bulging. This causes effacement of the right S1 nerve root in the lateral recess on axial image 30 and 31. No central stenosis. There is moderate right and mild left foraminal narrowing without definite exit ing L5 nerve root impingement SACRUM: Visualized upper sacrum intact. OTHER: No other significant findings. IMPRESSION: Severe central canal stenosis related to disc herniation at L3-4. TECHNICAL DOCUMENTATION: JOB ID: [id number] [employer]- All Rights Reserved Reading location - IP/workstation name: [email or web address]
--- NOTE | 2018-09-12 15:24 | RADIOLOGY REPORT (SQ) ---
EXAM DESCRIPTION: MRI LT LOWER JOINT WITHOUT; MRI RT LOWER JOINT WITHOUT COMPLETED DATE/TIME: 09/12/2018 1:17 pm REASON FOR STUDY: M16.12 Unilateral primary osteoarthritis, left hip; M16.11 Unilateral primary oste oarthritis, right hip M47.896 OTHER SPONDYLOSIS, LUMBAR REGION COMPARISON: None. TECHNIQUE: Bilateralhip images acquired and stored on PACS. Multiplanar images to include fat sensit gretchen sequences as T1, fluid sensitive sequences as T2/STIR and gradient echo sequences. Large FOV fat and fluid sensitive sequences include pelvis and opposite hip. LIMITATIONS: None. FINDINGS: BONE CORTEX AND MARROW: No generalized marrow replacement. No occult fracture. No worriso me bone lesions. RIGHT HIP: FEMORAL HEAD: No occult fracture. No osteophytes or subchondral cysts. Normal sphericity of femoral h ead/neck junction. No acetabular dysplasia. No evidence femoroacetabular impingement. No significant effusion. ACETABULUM: No acetabular dysplasia. No subchondral cysts. LABRUM: There is diffuse calcification/ossification throughout the acetabular labrum without paralabr al cyst. TROCHANTER: No trochanteric bursal effusion. No edema/fluid at the insertions of the glute us medius and gluteus minimus. LEFT HIP: FEMORAL HEAD: No occult fracture. No osteophytes or subchondral cysts. Normal sphericity of femoral h ead/neck junction. No acetabular dysplasia. No evidence femoroacetabular impingement. Small left hip joint effusion. ACETABULUM: Edema is present in the acetabular roof related to joint space narrowing and chondromalac ia. LABRUM: Diffuse calcifications/ ossification throughout the acetabular labrum without paralabral cyst . TROCHANTER: There is edema in the left gluteus minimus muscle and proximal tensor fascia brian muscle on coronal images 4 through 12. There is minimal edema in the distal most gluteal tendons at the tro chanteric attachment. No trochanteric bursa fluid PELVIS, LOWER LUMBAR SPINE, SACROILIAC JOINTS: PELVIS : No insufficiency/stress fractures. No significant degenerative changes. Sacroiliac joints normal. MUSCLES AND SOFT TISSUES: Adductors and piriformis normal. Iliopsoas bursa without fluid. Hamstring attachments without edema or tear. There is edema in the left gluteus minimus muscle and proximal te nsor fascia brian muscle PELVIC SOFT TISSUES: No masses or adenopathy. Grossly normal size uterus and ovaries SCIATIC NERVE: Identified, without masses or abnormal signal. OTHER: No other significant finding. IMPRESSION: Bilateral degenerative acetabular labral changes. On the right side, no trochanteric bursitis or significant joint effusion is present. On the left side, there is edema in the acetabular roof related to chondromalacia at the left hip nagi nt. Small joint effusion with edema in the tensor fascia brian muscle and gluteus minimus muscle with trace fluid along the distal attachment of the gluteal muscles on the greater trochanter. TECHNICAL DOCUMENTATION: JOB ID: [id number] [employer] All Rights Reserved Reading location - IP/workstation name: [email or web address]-[facility]-
== END ==
LOC: RAD 11:48
PROVIDERS: ATTEND Physician Assistant
DX: M47.896 Other spondylosis, lumbar region (principal); M16.0 Bilateral primary osteoarthritis of hip
CPT/HCPCS: 72148

== ENCOUNTER → 2018-11-19 | Outpatient (CLI) | payer MEDICAID ==
--- NOTE | 2018-11-19 13:04 | RADIOLOGY REPORT (SQ) ---
EXAM DESCRIPTION: L SPINE FLEX/EXT ONLY; SPINE SINGLE VIEW COMPLETED DATE/TIME: 11/19/2018 11:24 am REASON FOR STUDY: LUMBAR RADICULOPATHY COMPARISON: 2017 NUMBER OF VIEWS: Four view. TECHNIQUE: AP and lateral views of the lumbar spine with flexion and extension. LIMITATIONS: None. FINDINGS: MINERALIZATION: Osteopenia. SEGMENTATION: Normal. No transitional anatomy. ALIGNMENT: Interval development of scoliosis convex right. FLEXION/EXTENSION: No instability. VERTEBRAE: Maintained height. No fracture or worrisome bone lesion. DISCS: Multilevel degenerative disc disease with disc space narrowing. POSTERIOR ELEMENTS: Pedicles and facets are intact. No pars defect or posterior arch defects. HARDWARE: None in the spine. OTHER: No other significant finding. IMPRESSION: Generalized osteopenia. Interval development of scoliosis convex right. Marked increased degenerative disc disease. NO INSTABILITY ON FLEXION/EXTENSION. TECHNICAL DOCUMENTATION: JOB ID: [id number] [employer]- All Rights Reserved Reading location - IP/workstation name: [email or web address]
--- NOTE | 2018-11-19 13:04 | RADIOLOGY REPORT (SQ) ---
EXAM DESCRIPTION: L SPINE FLEX/EXT ONLY; SPINE SINGLE VIEW COMPLETED DATE/TIME: 11/19/2018 11:24 am REASON FOR STUDY: LUMBAR RADICULOPATHY COMPARISON: 2017 NUMBER OF VIEWS: Four view. TECHNIQUE: AP and lateral views of the lumbar spine with flexion and extension. LIMITATIONS: None. FINDINGS: MINERALIZATION: Osteopenia. SEGMENTATION: Normal. No transitional anatomy. ALIGNMENT: Interval development of scoliosis convex right. FLEXION/EXTENSION: No instability. VERTEBRAE: Maintained height. No fracture or worrisome bone lesion. DISCS: Multilevel degenerative disc disease with disc space narrowing. POSTERIOR ELEMENTS: Pedicles and facets are intact. No pars defect or posterior arch defects. HARDWARE: None in the spine. OTHER: No other significant finding. IMPRESSION: Generalized osteopenia. Interval development of scoliosis convex right. Marked increased degenerative disc disease. NO INSTABILITY ON FLEXION/EXTENSION. TECHNICAL DOCUMENTATION: JOB ID: [id number] [employer]- All Rights Reserved Reading location - IP/workstation name: [email or web address]
== END ==
LOC: RAD 10:45
PROVIDERS: ATTEND Specialist
DX: M85.88 Other specified disorders of bone density and structure, other site (principal); M41.86 Other forms of scoliosis, lumbar region
CPT/HCPCS: 72020; 72120

== ENCOUNTER → 2019-06-25 | Outpatient (CLI) | payer MEDICAID ==
--- NOTE | 2019-06-25 17:19 | WOMENS IMAGING REPORT ---
EXAM DESCRIPTION: BILAT SCREENING MAMMO W/CAD COMPLETED DATE/TIME: 06/25/2019 1:51 pm REASON FOR STUDY: Z87.898 BILAT SCREENING MAMMO Z12.31 ENCNTR SCREEN MAMMOGRAM FOR MALIGNANT NEOPLA SM OF NATHALIE COMPARISON: None available EXAM PARAMETERS: Standard craniocaudal and mediolateral oblique views of each breast recorded using digital acquisition. Read with the assistance of CAD. .[facility] - [facility] Rn New Grad Version 9.2 LIMITATIONS: None. FINDINGS: Findings present which are benign by mammographic criteria. No suspicious masses, calcifi cations or architectural distortion. Pertinent benign findings: Benign bilateral breast parenchymal calcifications are present Benign mammographic findings may include one or more of the following: Smooth masses, popcorn/rim/co arse calcifications, asymmetries, post-procedure changes, and lesions with long-standing stability. IMPRESSION: BENIGN MAMMOGRAPHIC FINDINGS. BIRADS 2 BREAST DENSITY: b. There are scattered areas of fibroglandular density. BIRAD: ASSESSMENT: 2 BENIGN FINDING(S) RECOMMENDATION: ROUTINE SCREENING Please continue yearly bilateral screening mammography/tomosynthesis in June 2020 COMMENT: The patient has been notified of the results by letter per MQSA requirements. Additional no tification policies are in place for contacting patient with suspicious or incomplete findings. Quality ID #[id number]: The [employer] recommends an annual screening mammogram for women aged 40 years or over. This facility utilizes a reminder system to ensure that all patients receive reminder letters, and/or direct phone calls for appointments. This includes reminders for routine scr eening mammograms, diagnostic mammograms, or other Breast Imaging Interventions when appropriate. Th is patient will be placed in the appropriate reminder system. TECHNICAL DOCUMENTATION: FINDING NUMBER: (1) ASSESSMENT: (1) JOB ID: [id number] 2010 [employer]- All Rights Reserved Reading location - IP/workstation name: [email or web address]
== END ==
LOC: WI 13:05
PROVIDERS: ATTEND Nurse Practitioner Primary Care
DX: Z12.31 Encounter for screening mammogram for malignant neoplasm of breast (principal); Z87.898 Personal history of other specified conditions
CPT/HCPCS: 77067